=== PATIENT | female | born 1960 | race Caucasian/White ===

== ENCOUNTER → 2017-02-01 | Outpatient (REF) | payer BC ==
[~2017-02-01] MED LIST: AUGM875T27 PO; BISAC5TA PO; IBUP200C PO; METF500T PO; TYLE325T5 PO; ZANT150T PO; [UNRECOGNIZED DRUG - CODE] EX
[2017-02-01 16:32] LABS: ALBUMIN 3.5 GM/DL (3.2-5.2); ALBUMIN/GLOBULIN RATIO 1.13 (1.00-1.93); ALKALINE PHOSPHATASE 59 U/L (45-117); ALT/SGPT 17 U/L (12-78); ANION GAP 11 MEQ/L (8-16); AST/SGOT 14 U/L (15-37); BILIRUBIN,TOTAL 0.5 MG/DL (0.2-1.0); BLOOD UREA NITROGEN 20 MG/DL (7-18); CARBON DIOXIDE LEVEL 29 MEQ/L (21-32); CHLORIDE LEVEL 100 MEQ/L (98-107); CHOLESTEROL LEVEL 156 MG/DL (<200); CREATININE FOR GFR 0.65 MG/DL (0.55-1.02); GLOMERULAR FILTRATION RATE > 60.0 (>51); GLUCOSE, FASTING 143 MG/DL (70-105); POTASSIUM SERUM 3.9 MEQ/L (3.5-5.1); SODIUM LEVEL 140 MEQ/L (136-145); TOTAL PROTEIN 6.6 GM/DL (6.4-8.2); TRIGLYCERIDES LEVEL 142 MG/DL (<150)
== END ==
LOC: M SFHCSACK 10:29
PROVIDERS: ATTEND Physician Assistant
DX: I10 Essential (primary) hypertension (principal); E11.69 Type 2 diabetes mellitus with other specified complication; E03.9 Hypothyroidism, unspecified

== ENCOUNTER → 2017-05-13 | Outpatient (REF) | payer BC ==
[2017-05-13 16:17] LABS: ALBUMIN 3.4 GM/DL (3.2-5.2); ALBUMIN/GLOBULIN RATIO 1.03 (1.00-1.93); ALKALINE PHOSPHATASE 62 U/L (45-117); ALT/SGPT 20 U/L (12-78); ANION GAP 7 MEQ/L (8-16); AST/SGOT 13 U/L (15-37); BILIRUBIN,TOTAL 0.4 MG/DL (0.2-1.0); BLOOD UREA NITROGEN 14 MG/DL (7-18); CALCIUM LEVEL 9.2 MG/DL (8.5-10.1); CARBON DIOXIDE LEVEL 32 MEQ/L (21-32); CHLORIDE LEVEL 100 MEQ/L (98-107); CHOLESTEROL LEVEL 172 MG/DL (<200); CREATININE FOR GFR 0.66 MG/DL (0.55-1.02); GLOMERULAR FILTRATION RATE > 60.0 (>51); GLUCOSE, FASTING 129 MG/DL (70-105); POTASSIUM SERUM 4.1 MEQ/L (3.5-5.1); SODIUM LEVEL 139 MEQ/L (136-145); TOTAL PROTEIN 6.7 GM/DL (6.4-8.2); TRIGLYCERIDES LEVEL 136 MG/DL (<150)
== END ==
LOC: M SFHCSACK 08:11
PROVIDERS: ATTEND Physician Assistant
DX: I10 Essential (primary) hypertension (principal); E11.69 Type 2 diabetes mellitus with other specified complication; E03.9 Hypothyroidism, unspecified

== ENCOUNTER → 2017-07-03 | Outpatient (CLI) | payer BC ==
[~2017-07-03] MED LIST changes: +ASPI1TAB PO; +ATOR1TAB19 PO; +CITA20TA4 PO; +FARX1TAB3 PO; +FERR325T3 PO; +GLIM2TAB PO; +IBUP1TAB7 PO; +JANU100T PO; +LORA10TA2 PO; +LOSA100T5 PO; +METF500T13 PO; +METO25TA4 PO; +OMEP20CA3 PO; +PREG100CA PO; +TIZA4CAP3 PO
--- NOTE | 2017-07-03 16:57 | REP ---
LEFT FEMUR, AP AND LATERAL: AP and lateral view of the left femur are performed. There is no acute fracture or dislocation. There is mild joint space narrowing at the hip and the knee. No intrinsic osseous pathology is seen. IMPRESSION: Mild degenerative changes without other significant abnormalities. Signed by Clinton Washington MD 07/03/2017 05:16 P
--- NOTE | 2017-07-03 16:58 | REP ---
RIGHT FOREARM, TWO VIEWS: There is no evidence of an acute fracture, dislocation or intrinsic bone disease. IMPRESSION: No fracture or dislocation. Signed by Clinton Washington MD 07/03/2017 05:16 P
== END ==
LOC: M RAD 16:21
PROVIDERS: ATTEND Physician Assistant
DX: M79.631 Pain in right forearm (principal); M79.652 Pain in left thigh

== ENCOUNTER → 2017-08-16 | Outpatient (REF) | payer BC ==
[2017-08-16 16:59] LABS: ALBUMIN 3.4 GM/DL (3.2-5.2); ALBUMIN/GLOBULIN RATIO 1.13 (1.00-1.93); ALKALINE PHOSPHATASE 64 U/L (45-117); ALT/SGPT 26 U/L (12-78); ANION GAP 9 MEQ/L (8-16); AST/SGOT 22 U/L (15-37); BILIRUBIN,TOTAL 0.5 MG/DL (0.2-1.0); BLOOD UREA NITROGEN 19 MG/DL (7-18); CARBON DIOXIDE LEVEL 31 MEQ/L (21-32); CHLORIDE LEVEL 99 MEQ/L (98-107); CREATININE FOR GFR 0.67 MG/DL (0.55-1.02); GLOMERULAR FILTRATION RATE > 60.0 (>51); GLUCOSE, FASTING 141 MG/DL (70-105); POTASSIUM SERUM 3.9 MEQ/L (3.5-5.1); SODIUM LEVEL 139 MEQ/L (136-145); TOTAL PROTEIN 6.4 GM/DL (6.4-8.2)
[2017-08-16 17:13] LABS: BASO % 0.3 % (0.0-1.0); EOS # 0.3 10^3/uL (0.0-0.50); EOS % 3.9 % (0.0-3.0); IMMATURE GRANULOCYTE % 0.1 % (0-0); LYMPH % 26.8 % (24.0-44.0); MEAN CORPUSCULAR HEMOGLOBIN 27.8 pg (27.0-33.0); MEAN CORPUSCULAR HGB CONC 31.2 g/dl (32.0-36.5); MONO # 0.4 10^3/uL (0.0-0.8); MONO % 5.8 % (0.0-5.0); NEUTROPHILS # 4.7 10^3/uL (1.8-7.7); NEUTROPHILS % 63.1 % (36.0-66.0); PLATELET COUNT, AUTOMATED 147 10^3/uL (150-450); RED CELL DISTRIBUTION WIDTH 14.9 % (11.5-14.5); WHITE BLOOD COUNT 7.4 10^3/uL (4.0-10.0)
[2017-08-16 17:18] LABS: ADD MORPHOLOGY? NO
== END ==
LOC: M SFHCSACK 07:52
PROVIDERS: ATTEND Physician Assistant
DX: I10 Essential (primary) hypertension (principal); E11.9 Type 2 diabetes mellitus without complications

== ENCOUNTER → 2017-11-22 | Outpatient (REF) | payer BC ==
[2017-11-22 15:27] LABS: BASO % 0.2 % (0.0-1.0); EOS # 0.3 10^3/uL (0.0-0.50); EOS % 3.7 % (0.0-3.0); HEMATOCRIT 42.3 % (36.0-47.0); HEMOGLOBIN 13.5 g/dl (12.0-16.0); IMMATURE GRANULOCYTE % 0.2 % (0-0); LYMPH # 1.7 10^3/uL (1.5-4.5); LYMPH % 20.4 % (24.0-44.0); MEAN CORPUSCULAR HEMOGLOBIN 28.6 pg (27.0-33.0); MEAN CORPUSCULAR HGB CONC 31.9 g/dl (32.0-36.5); MEAN CORPUSCULAR VOLUME 89.6 fl (80.0-96.0); MONO # 0.4 10^3/uL (0.0-0.8); NEUTROPHILS # 5.8 10^3/uL (1.8-7.7); NEUTROPHILS % 70.5 % (36.0-66.0); PLATELET COUNT, AUTOMATED 160 10^3/uL (150-450); RED BLOOD COUNT 4.72 10^6/uL (4.00-5.40); RED CELL DISTRIBUTION WIDTH 14.9 % (11.5-14.5); WHITE BLOOD COUNT 8.3 10^3/uL (4.0-10.0)
[2017-11-22 15:47] LABS: ESTIMATED AVERAGE GLUCOSE 160 MG/DL (60-110); HEMOGLOBIN A1c 7.2 %
[2017-11-22 15:48] LABS: ALBUMIN 3.7 GM/DL (3.2-5.2); ALBUMIN/GLOBULIN RATIO 1.16 (1.00-1.93); ALKALINE PHOSPHATASE 69 U/L (45-117); ALT/SGPT 18 U/L (12-78); ANION GAP 7 MEQ/L (8-16); AST/SGOT 13 U/L (7-37); BILIRUBIN,TOTAL 0.5 MG/DL (0.2-1.0); BLOOD UREA NITROGEN 24 MG/DL (7-18); CARBON DIOXIDE LEVEL 33 MEQ/L (21-32); CHLORIDE LEVEL 100 MEQ/L (98-107); CHOLESTEROL LEVEL 181 MG/DL (<200); CHOLESTEROL RISK RATIO 4.763 (<5); CREATININE FOR GFR 0.71 MG/DL (0.55-1.02); FERRITIN 57 NG/ML (8-252); FREE T4 1.22 NG/DL (0.76-1.46); GLOMERULAR FILTRATION RATE > 60.0 (>51); GLUCOSE, FASTING 138 MG/DL (70-105); HDL CHOLESTEROL 38 MG/DL (>40); IRON (FE) 61 UG/DL (50-170); LDL CHOLESTEROL 107.4 MG/DL (<100); NON-HDL-C 143 MG/DL; PERCENT SATURATION 19.6 % (13.2-45.0); POTASSIUM SERUM 3.8 MEQ/L (3.5-5.1); SODIUM LEVEL 140 MEQ/L (136-145); TOTAL IRON BINDING CAPACITY 311 UG/DL (250-450); TOTAL PROTEIN 6.9 GM/DL (6.4-8.2); TRIGLYCERIDES LEVEL 178 MG/DL (<150)
[2017-11-22 16:07] LABS: TOTAL 25(OH) VITAMIN D 14.8 NG/ML (30.0-100.0)
[2017-11-22 16:20] LABS: CREATININE, URINE 72.5 MG/DL; MALB URINE SIEMENS 25.9 MG/L; MAU/CREAT RATIO 35.7 MCG/MG (0.0-30.0)
== END ==
LOC: M SFHCSACK 13:03
DX: D50.9 Iron deficiency anemia, unspecified (principal); E11.69 Type 2 diabetes mellitus with other specified complication; E03.9 Hypothyroidism, unspecified; E11.9 Type 2 diabetes mellitus without complications; R80.9 Proteinuria, unspecified; E55.9 Vitamin D deficiency, unspecified
CPT/HCPCS: 83550

== ENCOUNTER → 2018-03-07 | Outpatient (REF) | payer BC ==
[2018-03-07 14:57] LABS: BASO % 0.2 % (0.0-1.0); EOS # 0.3 10^3/uL (0.0-0.50); EOS % 3.2 % (0.0-3.0); HEMATOCRIT 40.1 % (36.0-47.0); HEMOGLOBIN 12.5 g/dl (12.0-15.5); IMMATURE GRANULOCYTE % 0.1 % (0-3.0); LYMPH # 2.5 10^3/uL (1.5-4.5); LYMPH % 30.1 % (24.0-44.0); MEAN CORPUSCULAR HGB CONC 31.2 g/dl (32.0-36.5); MEAN CORPUSCULAR VOLUME 89.9 fl (80.0-96.0); MONO # 0.4 10^3/uL (0.0-0.8); MONO % 5.2 % (0.0-5.0); NEUTROPHILS % 61.2 % (36.0-66.0); PLATELET COUNT, AUTOMATED 189 10^3/uL (150-450); RED BLOOD COUNT 4.46 10^6/uL (4.00-5.40); RED CELL DISTRIBUTION WIDTH 14.6 % (11.5-14.5); WHITE BLOOD COUNT 8.1 10^3/uL (4.0-10.0)
[2018-03-07 15:25] LABS: TOTAL 25(OH) VITAMIN D 41.6 NG/ML (30.0-100.0)
[2018-03-07 15:30] LABS: ALBUMIN 3.6 GM/DL (3.2-5.2); ALBUMIN/GLOBULIN RATIO 1.09 (1.00-1.93); ALKALINE PHOSPHATASE 71 U/L (45-117); ALT/SGPT 17 U/L (12-78); ANION GAP 5 MEQ/L (8-16); AST/SGOT 7 U/L (7-37); BILIRUBIN,TOTAL 0.4 MG/DL (0.2-1.0); BLOOD UREA NITROGEN 23 MG/DL (7-18); CALCIUM LEVEL 8.9 MG/DL (8.5-10.1); CARBON DIOXIDE LEVEL 32 MEQ/L (21-32); CHLORIDE LEVEL 103 MEQ/L (98-107); CHOLESTEROL LEVEL 169 MG/DL (<200); CHOLESTEROL RISK RATIO 5.121 (<5); CREATININE FOR GFR 0.77 MG/DL (0.55-1.30); GLOMERULAR FILTRATION RATE > 60.0 (>51); GLUCOSE, FASTING 125 MG/DL (70-100); HDL CHOLESTEROL 33 MG/DL (>40); LDL CHOLESTEROL 100.4 MG/DL (<100); NON-HDL-C 136 MG/DL; POTASSIUM SERUM 4.1 MEQ/L (3.5-5.1); SODIUM LEVEL 140 MEQ/L (136-145); TOTAL PROTEIN 6.9 GM/DL (6.4-8.2); TRIGLYCERIDES LEVEL 178 MG/DL (<150)
== END ==
LOC: M SFHCSACK 08:51
DX: D50.9 Iron deficiency anemia, unspecified (principal); E11.69 Type 2 diabetes mellitus with other specified complication; E55.9 Vitamin D deficiency, unspecified
CPT/HCPCS: 82306

== ENCOUNTER → 2018-03-14 | Outpatient (REF) | payer BC | LOC: M SFHCSACK 09:24 | DX: N39.0 Urinary tract infection, site not specified (principal) ==

== ENCOUNTER → 2018-06-08 | Outpatient (REF) | payer BC ==
[2018-06-08 17:52] LABS: BASO % 0.3 % (0.0-1.0); EOS # 0.3 10^3/uL (0.0-0.50); EOS % 3.7 % (0.0-3.0); HEMATOCRIT 42.7 % (36.0-47.0); HEMOGLOBIN 13.5 g/dl (12.0-15.5); IMMATURE GRANULOCYTE % 0.4 % (0-3.0); LYMPH # 1.9 10^3/uL (1.5-4.5); LYMPH % 25.1 % (24.0-44.0); MEAN CORPUSCULAR HEMOGLOBIN 27.8 pg (27.0-33.0); MEAN CORPUSCULAR HGB CONC 31.6 g/dl (32.0-36.5); MONO # 0.4 10^3/uL (0.0-0.8); MONO % 5.2 % (0.0-5.0); NEUTROPHILS # 5.1 10^3/uL (1.8-7.7); NEUTROPHILS % 65.3 % (36.0-66.0); PLATELET COUNT, AUTOMATED 182 10^3/uL (150-450); RED BLOOD COUNT 4.85 10^6/uL (4.00-5.40); RED CELL DISTRIBUTION WIDTH 14.7 % (11.5-14.5); WHITE BLOOD COUNT 7.7 10^3/uL (4.0-10.0)
[2018-06-08 18:28] LABS: ALBUMIN 3.5 GM/DL (3.2-5.2); ALBUMIN/GLOBULIN RATIO 1.06 (1.00-1.93); ALKALINE PHOSPHATASE 66 U/L (45-117); ALT/SGPT 22 U/L (12-78); ANION GAP 8 MEQ/L (8-16); AST/SGOT 14 U/L (7-37); BILIRUBIN,TOTAL 0.4 MG/DL (0.2-1.0); BLOOD UREA NITROGEN 26 MG/DL (7-18); CALCIUM LEVEL 9.4 MG/DL (8.5-10.1); CARBON DIOXIDE LEVEL 30 MEQ/L (21-32); CHLORIDE LEVEL 104 MEQ/L (98-107); CREATININE FOR GFR 0.77 MG/DL (0.55-1.30); ESTIMATED AVERAGE GLUCOSE 186 MG/DL (60-110); FERRITIN 52 NG/ML (8-252); FREE T4 1.06 NG/DL (0.76-1.46); GLOMERULAR FILTRATION RATE > 60.0 (>51); GLUCOSE, FASTING 187 MG/DL (70-100); HEMOGLOBIN A1c 8.1 %; IRON (FE) 63 UG/DL (50-170); PERCENT SATURATION 19.7 % (13.2-45.0); POTASSIUM SERUM 4.3 MEQ/L (3.5-5.1); SODIUM LEVEL 142 MEQ/L (136-145); TOTAL IRON BINDING CAPACITY 320 UG/DL (250-450); TOTAL PROTEIN 6.8 GM/DL (6.4-8.2)
[2018-06-09 09:51] LABS: TOTAL 25(OH) VITAMIN D 60.4 NG/ML (30.0-100.0)
== END ==
LOC: M SFHCSACK 09:39
DX: D50.9 Iron deficiency anemia, unspecified (principal); E11.69 Type 2 diabetes mellitus with other specified complication; E03.9 Hypothyroidism, unspecified; E55.9 Vitamin D deficiency, unspecified
CPT/HCPCS: 83550

== ENCOUNTER → 2018-09-14 | Outpatient (REF) | payer BC ==
[2018-09-14 18:16] LABS: BASO % 0.2 % (0.0-1.0); EOS # 0.3 10^3/uL (0.0-0.50); EOS % 3.9 % (0.0-3.0); HEMATOCRIT 44.1 % (36.0-47.0); HEMOGLOBIN 13.8 g/dl (12.0-15.5); IMMATURE GRANULOCYTE % 0.4 % (0-3.0); LYMPH # 2.3 10^3/uL (1.5-4.5); LYMPH % 26.4 % (24.0-44.0); MEAN CORPUSCULAR HEMOGLOBIN 28.8 pg (27.0-33.0); MEAN CORPUSCULAR HGB CONC 31.3 g/dl (32.0-36.5); MEAN CORPUSCULAR VOLUME 91.9 fl (80.0-96.0); MONO # 0.5 10^3/uL (0.0-0.8); MONO % 5.3 % (0.0-5.0); NEUTROPHILS # 5.4 10^3/uL (1.8-7.7); NEUTROPHILS % 63.8 % (36.0-66.0); PLATELET COUNT, AUTOMATED 177 10^3/uL (150-450); RED CELL DISTRIBUTION WIDTH 14.8 % (11.5-14.5); WHITE BLOOD COUNT 8.5 10^3/uL (4.0-10.0)
[2018-09-14 18:17] LABS: ALBUMIN 3.7 GM/DL (3.2-5.2); ALBUMIN/GLOBULIN RATIO 1.19 (1.00-1.93); ALKALINE PHOSPHATASE 66 U/L (45-117); ALT/SGPT 27 U/L (12-78); ANION GAP 9 MEQ/L (8-16); AST/SGOT 23 U/L (7-37); BILIRUBIN,TOTAL 0.5 MG/DL (0.2-1.0); BLOOD UREA NITROGEN 23 MG/DL (7-18); CALCIUM LEVEL 9.4 MG/DL (8.5-10.1); CARBON DIOXIDE LEVEL 31 MEQ/L (21-32); CHLORIDE LEVEL 100 MEQ/L (98-107); CHOLESTEROL LEVEL 178 MG/DL (<200); CHOLESTEROL RISK RATIO 5.741 (<5); ESTIMATED AVERAGE GLUCOSE 174 MG/DL (60-110); FREE T4 1.11 NG/DL (0.76-1.46); GLOMERULAR FILTRATION RATE > 60.0 (>51); GLUCOSE, FASTING 169 MG/DL (70-100); HDL CHOLESTEROL 31 MG/DL (>40); HEMOGLOBIN A1c 7.7 %; LDL CHOLESTEROL 107 MG/DL (<100); NON-HDL-C 147 MG/DL; POTASSIUM SERUM 4.6 MEQ/L (3.5-5.1); SODIUM LEVEL 140 MEQ/L (136-145); TOTAL PROTEIN 6.8 GM/DL (6.4-8.2); TRIGLYCERIDES LEVEL 202 MG/DL (<150)
[2018-09-15 09:50] LABS: TOTAL 25(OH) VITAMIN D 54.9 NG/ML (30.0-100.0)
== END ==
LOC: M SFHCADAM 12:27
DX: I10 Essential (primary) hypertension (principal); E11.9 Type 2 diabetes mellitus without complications; E03.9 Hypothyroidism, unspecified; E78.2 Mixed hyperlipidemia; E55.9 Vitamin D deficiency, unspecified
CPT/HCPCS: 84443

== ENCOUNTER → 2019-03-11 | Outpatient (REF) | payer OTHER ==
[~2019-03-11] MED LIST changes: -ASPI1TAB PO; +ASPI81TA26 PO; -CITA20TA4 PO; +CITA20TA6 PO; +LORA-243 PO; -LORA10TA2 PO; +TIZA4CAP PO; -TIZA4CAP3 PO
[2019-03-11 14:45] LABS: BASO % 0.4 % (0.0-1.0); EOS # 0.3 10^3/uL (0.0-0.50); EOS % 3.4 % (0.0-3.0); HEMATOCRIT 40.1 % (36.0-47.0); HEMOGLOBIN 12.6 g/dl (12.0-15.5); LYMPH # 1.9 10^3/uL (1.5-4.5); LYMPH % 24.4 % (24.0-44.0); MEAN CORPUSCULAR HGB CONC 31.4 g/dl (32.0-36.5); MEAN CORPUSCULAR VOLUME 92.4 fl (80.0-96.0); MONO # 0.4 10^3/uL (0.0-0.8); MONO % 5.1 % (0.0-5.0); NEUTROPHILS # 5.2 10^3/uL (1.8-7.7); NEUTROPHILS % 66.1 % (36.0-66.0); PLATELET COUNT, AUTOMATED 249 10^3/uL (150-450); RED BLOOD COUNT 4.34 10^6/uL (4.00-5.40); WHITE BLOOD COUNT 7.9 10^3/uL (4.0-10.0)
[2019-03-11 15:00] LABS: ALBUMIN 3.7 GM/DL (3.2-5.2); ALT/SGPT 17 U/L (12-78); BILIRUBIN,TOTAL 0.3 MG/DL (0.2-1.0); BLOOD UREA NITROGEN 30 MG/DL (7-18); CALCIUM LEVEL 9.2 MG/DL (8.5-10.1); CARBON DIOXIDE LEVEL 30 MEQ/L (21-32); CHLORIDE LEVEL 106 MEQ/L (98-107); CHOLESTEROL LEVEL 188 MG/DL (<200); CHOLESTEROL RISK RATIO 5.696 (<5); CREATININE FOR GFR 0.89 MG/DL (0.55-1.30); FREE T4 1.19 NG/DL (0.76-1.46); GLOMERULAR FILTRATION RATE > 60.0 (>51); GLUCOSE, FASTING 135 MG/DL (70-100); HDL CHOLESTEROL 33 MG/DL (>40); LDL CHOLESTEROL 116 MG/DL (<100); NON-HDL-C 155 MG/DL; POTASSIUM SERUM 4.8 MEQ/L (3.5-5.1); SODIUM LEVEL 140 MEQ/L (136-145); TOTAL PROTEIN 6.9 GM/DL (6.4-8.2); TRIGLYCERIDES LEVEL 196 MG/DL (<150)
[2019-03-11 15:46] LABS: CREATININE, URINE 75.7 MG/DL; MALB URINE SIEMENS 14.3 MG/L; MAU/CREAT RATIO 18.8 MCG/MG (0.0-30.0)
[2019-03-11 16:41] LABS: HEMOGLOBIN A1c 6.9 %
== END ==
LOC: M SFHCSACK 10:10
PROVIDERS: ATTEND Physician Assistant
DX: D50.9 Iron deficiency anemia, unspecified (principal); E78.2 Mixed hyperlipidemia; E03.9 Hypothyroidism, unspecified; E11.9 Type 2 diabetes mellitus without complications

== ENCOUNTER → 2019-06-29 | Outpatient (REF) | payer OTHER, SELFPAY ==
[~2019-06-29] MED LIST changes: -OMEP20CA3 PO; +OMEP20CA4 PO
[2019-06-29 14:11] LABS: BASO % 0.4 % (0.0-1.0); EOS # 0.3 10^3/uL (0.0-0.50); EOS % 3.7 % (0.0-3.0); HEMOGLOBIN 12.8 g/dl (12.0-15.5); LYMPH # 1.7 10^3/uL (1.5-4.5); LYMPH % 23.7 % (24.0-44.0); MEAN CORPUSCULAR HEMOGLOBIN 29.7 pg (27.0-33.0); MEAN CORPUSCULAR VOLUME 92.8 fl (80.0-96.0); MONO # 0.4 10^3/uL (0.0-0.8); MONO % 4.9 % (0.0-5.0); NEUTROPHILS # 4.8 10^3/uL (1.8-7.7); NEUTROPHILS % 66.9 % (36.0-66.0); PLATELET COUNT, AUTOMATED 183 10^3/uL (150-450); RED BLOOD COUNT 4.31 10^6/uL (4.00-5.40); WHITE BLOOD COUNT 7.1 10^3/uL (4.0-10.0)
[2019-06-29 14:24] LABS: ALBUMIN 3.7 GM/DL (3.2-5.2); ALT/SGPT 18 U/L (12-78); BILIRUBIN,TOTAL 0.4 MG/DL (0.2-1.0); BLOOD UREA NITROGEN 21 MG/DL (7-18); CALCIUM LEVEL 9.3 MG/DL (8.5-10.1); CARBON DIOXIDE LEVEL 32 MEQ/L (21-32); CHLORIDE LEVEL 100 MEQ/L (98-107); CHOLESTEROL LEVEL 170 MG/DL (<200); CHOLESTEROL RISK RATIO 5.151 (<5); CREATININE FOR GFR 0.83 MG/DL (0.55-1.30); FERRITIN 98 NG/ML (8-252); FREE T4 1.14 NG/DL (0.76-1.46); GLOMERULAR FILTRATION RATE > 60.0 (>51); GLUCOSE, FASTING 198 MG/DL (70-100); HDL CHOLESTEROL 33 MG/DL (>40); IRON (FE) 71 UG/DL (50-170); LDL CHOLESTEROL 88 MG/DL (<100); NON-HDL-C 137 MG/DL; PERCENT SATURATION 22.5 % (13.2-45.0); POTASSIUM SERUM 4.6 MEQ/L (3.5-5.1); SODIUM LEVEL 138 MEQ/L (136-145); TOTAL IRON BINDING CAPACITY 315 UG/DL (250-450); TOTAL PROTEIN 6.6 GM/DL (6.4-8.2); TRIGLYCERIDES LEVEL 244 MG/DL (<150)
[2019-06-29 14:25] LABS: TOTAL 25(OH) VITAMIN D 49.4 NG/ML (30.0-100.0)
[2019-06-29 16:05] LABS: HEMOGLOBIN A1c 8.8 %
== END ==
LOC: M SFHCSACK 09:31
PROVIDERS: ATTEND Physician Assistant
DX: D50.9 Iron deficiency anemia, unspecified (principal); E11.69 Type 2 diabetes mellitus with other specified complication; E03.9 Hypothyroidism, unspecified; E11.9 Type 2 diabetes mellitus without complications; E55.9 Vitamin D deficiency, unspecified

== ENCOUNTER → 2019-12-21 | Outpatient (REF) | payer BC ==
[~2019-12-21] MED LIST changes: -GLIM2TAB PO; +GLIM2TAB4 PO; +OMEP1CAP73 PO; -OMEP20CA4 PO
[2019-12-21 14:16] LABS: BASO % 0.3 % (0.0-1.0); EOS # 0.2 10^3/uL (0.0-0.5); EOS % 3.3 % (0.0-3.0); HEMATOCRIT 40.4 % (36.0-47.0); HEMOGLOBIN 12.3 g/dl (12.0-15.5); LYMPH # 1.8 10^3/uL (1.5-5.0); LYMPH % 25.5 % (24.0-44.0); MEAN CORPUSCULAR HEMOGLOBIN 28.7 pg (27.0-33.0); MEAN CORPUSCULAR HGB CONC 30.4 g/dl (32.0-36.5); MEAN CORPUSCULAR VOLUME 94.2 fl (80.0-96.0); MONO # 0.4 10^3/uL (0.0-0.8); MONO % 5.6 % (0.0-5.0); NEUTROPHILS # 4.5 10^3/uL (1.5-8.5); NEUTROPHILS % 64.7 % (36.0-66.0); PLATELET COUNT, AUTOMATED 181 10^3/uL (150-450); RED BLOOD COUNT 4.29 10^6/uL (4.00-5.40); WHITE BLOOD COUNT 6.9 10^3/uL (4.0-10.0)
[2019-12-21 14:40] LABS: ALBUMIN 3.6 GM/DL (3.2-5.2); BILIRUBIN,TOTAL 0.7 MG/DL (0.2-1.0); CALCIUM LEVEL 9.9 MG/DL (8.5-10.1); CREATININE FOR GFR 1.14 MG/DL (0.55-1.30); FREE T4 1.18 NG/DL (0.76-1.46); GLOMERULAR FILTRATION RATE 52.1 (>51); HEMOGLOBIN A1c 9.3 %; POTASSIUM SERUM 4.2 MEQ/L (3.5-5.1); THYROID STIMULATING HORMONE 3.39 uIU/ML (0.358-3.740); TOTAL 25(OH) VITAMIN D 51.8 NG/ML (30.0-100.0); TOTAL PROTEIN 6.8 GM/DL (6.4-8.2)
== END ==
LOC: M SFHCSACK 09:19
PROVIDERS: ATTEND Physician Assistant
DX: D50.9 Iron deficiency anemia, unspecified (principal); E11.9 Type 2 diabetes mellitus without complications; E03.9 Hypothyroidism, unspecified; E55.9 Vitamin D deficiency, unspecified

== ENCOUNTER → 2020-02-04 | Outpatient (REF) | payer BC ==
[2020-02-04 14:35] LABS: CREATININE, URINE 93.9 MG/DL; MALB URINE SIEMENS 40.1 MG/L; MAU/CREAT RATIO 42.7 MCG/MG (0.0-30.0)
== END ==
LOC: M LAB REF 13:28
PROVIDERS: ATTEND Nurse Practitioner Family
DX: E11.65 Type 2 diabetes mellitus with hyperglycemia (principal)

== ENCOUNTER → 2020-08-01 | Outpatient (REF) | payer BC ==
[~2020-08-01] MED LIST changes: +AZIT-12 PO; +HYDR25TAB PO; +LEVO75TA4 PO; +LISI10TA4 PO; +LOSA100T50 PO; +NEUR100C PO; +TRUL0.5I SC
[2020-08-01 12:56] LABS: ALBUMIN 3.8 GM/DL (3.2-5.2); BILIRUBIN,TOTAL 0.4 MG/DL (0.2-1.0); CALCIUM LEVEL 9.6 MG/DL (8.5-10.1); CHOLESTEROL RISK RATIO 4.923 (<5); CREATININE FOR GFR 1.1 MG/DL (0.55-1.30); GLOMERULAR FILTRATION RATE 54.1 (>51); POTASSIUM SERUM 4.8 MEQ/L (3.5-5.1); TOTAL PROTEIN 6.8 GM/DL (6.4-8.2)
== END ==
LOC: M LABDRWAD 12:14
PROVIDERS: ATTEND Nurse Practitioner Family
DX: E78.2 Mixed hyperlipidemia (principal)

== ENCOUNTER 2020-08-17 13:00 | Emergency (ER) | payer BC ==
[~2020-08-17] VITALS: Ht 162.6 cm; Wt 169.1 kg
[~2020-08-17 13:00] MED LIST changes: -AZIT-12 PO; -HYDR25TAB PO; -LEVO75TA4 PO; -LISI10TA4 PO; -LOSA100T50 PO; -NEUR100C PO; -TRUL0.5I SC
[2020-08-17] MEDS ORDERED: TRUL0.5I SC (13:51)
[2020-08-17] MEDS ORDERED: LEVO75TA4 PO (13:51)
[2020-08-17] MEDS ORDERED: LOSA100T50 PO (13:51)
[2020-08-17] MEDS ORDERED: HYDR25TAB PO (13:51)
[2020-08-17] MEDS ORDERED: NEUR100C PO (13:51)
[2020-08-17] MEDS ORDERED: LISI10TA4 PO (13:51)
[2020-08-17 14:20] LABS: BASO % 0.2 % (0.0-1.0); EOS # 0.2 10^3/uL (0.0-0.5); EOS % 2.6 % (0.0-3.0); HEMATOCRIT 38.7 % (36.0-47.0); LYMPH # 1.8 10^3/uL (1.5-5.0); MEAN CORPUSCULAR HEMOGLOBIN 28.8 pg (27.0-33.0); MEAN CORPUSCULAR VOLUME 92.8 fl (80.0-96.0); MONO # 0.4 10^3/uL (0.0-0.8); MONO % 4.7 % (0.0-5.0); NEUTROPHILS # 5.8 10^3/uL (1.5-8.5); PLATELET COUNT, AUTOMATED 198 10^3/uL (150-450); RED BLOOD COUNT 4.17 10^6/uL (4.00-5.40); WHITE BLOOD COUNT 8.3 10^3/uL (4.0-10.0)
[2020-08-17] MEDS ORDERED: NS 1,000 ML IV ONE (14:45)
[2020-08-17] MEDS ORDERED: ONDANSETRON 4MG/2ML VIAL IV ONE (15:00)
--- NOTE | 2020-08-17 15:04 | REPVR ---
PROCEDURE INFORMATION: Exam: CT Head Without Contrast Exam date and time: 08/17/2020 2:53 PM Age: 60 years old Clinical indication: Pain; Headache; Migraine; Aura effect not specified; Additional info: Abrupt severe SOSA TECHNIQUE: Imaging protocol: Computed tomography of the head without contrast. Radiation optimization: All CT scans at this facility use at least one of these dose optimization techniques: automated exposure control; mA and/or kV adjustment per patient size (includes targeted exams where dose is matched to clinical indication); or iterative reconstruction. COMPARISON: No relevant prior studies available. FINDINGS: Brain: There is no acute intracranial hemorrhage, cerebral edema, or midline shift. Mild cerebral and cerebellar volume loss is present. Cerebral ventricles: No ventriculomegaly. Bones/joints: No acute fracture. Paranasal sinuses: Visualized sinuses are unremarkable. No fluid levels. Mastoid air cells: Visualized mastoid air cells are well aerated. Orbits: The included orbital structures are unremarkable. Soft tissues: Unremarkable. IMPRESSION: No acute intracranial abnormality. Electronically signed by: Jim Rice On 08/17/2020 15:03:24 PM
[2020-08-17] MEDS ORDERED: dexameTHASONE 4 MG/ML 1ML VIAL (J1100 PER 1MG) IV ONE (16:15)
[2020-08-17] MEDS ORDERED: MORPHINE 2 MG/ML 1ML VIAL (J2270) IV ONE (16:15)
[2020-08-17] MEDS ORDERED: ACETAMINOPHEN 500 MG TAB PO ONE (16:15)
[2020-08-17] MEDS ORDERED: SUMAtriptan SUCCINATE 6 MG/0.5 ML VIAL SC ONE (16:15)
[2020-08-17] MEDS ORDERED: AZIT-12 PO (17:06)
[2020-08-17 17:18] VITALS: BP 125/96
== END 2020-08-17 17:23 | disposition home or self-care (01) ==
LOC: M ED 13:00
DX: R51 Headache (principal); H66.92 Otitis media, unspecified, left ear; R42 Dizziness and giddiness; H53.9 Unspecified visual disturbance; I10 Essential (primary) hypertension; E11.9 Type 2 diabetes mellitus without complications
CPT/HCPCS: 70450; 80047; 85025; 96361; 96372; 96374; 96375; 99284; J1100; J2270; J2405

== ENCOUNTER → 2020-10-03 | Outpatient (CLI) | payer BC ==
[~2020-10-03] MED LIST changes: +AZIT-12 PO; +HYDR25TAB PO; +LEVO75TA4 PO; +LISI10TA4 PO; +LOSA100T50 PO; +NEUR100C PO; +TRUL0.5I SC
== END ==
LOC: M LABSMTC 10:16
PROVIDERS: ATTEND Family Medicine
DX: Z20.828 Contact with and (suspected) exposure to other viral communicable diseases (principal)

== ENCOUNTER → 2021-03-06 | Outpatient (REF) | payer BC ==
[~2021-03-06] MED LIST changes: +HYDR-3490 PO; -HYDR25TAB PO; +LISI10TA22 PO; -LISI10TA4 PO
[2021-03-06 19:45] LABS: MALB URINE SIEMENS 91.3 MG/L; MAU/CREAT RATIO 74.2 MCG/MG (0.0-30.0)
== END ==
LOC: M LAB REF 17:12
PROVIDERS: ATTEND Nurse Practitioner Family
DX: E11.65 Type 2 diabetes mellitus with hyperglycemia (principal)

== ENCOUNTER → 2021-03-30 | Outpatient (CLI) | payer BC ==
--- NOTE | 2021-03-30 14:10 | REP ---
INDICATION: PAIN IN SHOULDERS COMPARISON: None. TECHNIQUE: Internal rotation, external rotation, and Y view right and left shoulder. FINDINGS: Right shoulder: Cortical irregularity and inferior spurring at the acromioclavicular joint is appreciated. Acute versus chronic fracture along the distal/lateral aspect of the acromion cannot be excluded and should be correlated clinically. Associated decreased subacromial space is noted. The glenohumeral joint is relatively intact and age-appropriate. Left shoulder: Cortical irregularity and spurring at the acromioclavicular joint and distal/lateral aspect of the acromion noted. Subtle irregularity along the inferior half of the glenoid rim identified. The humeral head demonstrates very subtle irregularity at the greater tuberosity. Small calcifications in the subacromial space suggest tendinopathy. No acute fracture or dislocation. IMPRESSION: Arthritic degenerative changes noted bilaterally (left greater than right) Possible likely old injury involving the right acromion. <Electronically signed by Betito Fields > 03/30/21 [id number]
== END ==
LOC: M ADAMS 11:04
PROVIDERS: ATTEND Family Medicine
DX: M25.511 Pain in right shoulder (principal); M25.512 Pain in left shoulder

== ENCOUNTER → 2021-04-03 | Outpatient (REF) | payer BC ==
[2021-04-03 12:36] LABS: BASO % 0.3 % (0.0-1.0); EOS # 0.3 10^3/uL (0.0-0.5); EOS % 3.2 % (0.0-3.0); HEMATOCRIT 39.6 % (36.0-47.0); HEMOGLOBIN 12.2 g/dl (12.0-15.5); LYMPH # 1.8 10^3/uL (1.5-5.0); LYMPH % 20.9 % (24.0-44.0); MEAN CORPUSCULAR HEMOGLOBIN 28.4 pg (27.0-33.0); MEAN CORPUSCULAR HGB CONC 30.8 g/dl (32.0-36.5); MEAN CORPUSCULAR VOLUME 92.3 fl (80.0-96.0); MONO # 0.4 10^3/uL (0.0-0.8); MONO % 4.3 % (2.0-8.0); NEUTROPHILS # 6.2 10^3/uL (1.5-8.5); NEUTROPHILS % 70.8 % (36.0-66.0); PLATELET COUNT, AUTOMATED 177 10^3/uL (150-450); RED BLOOD COUNT 4.29 10^6/uL (4.00-5.40); WHITE BLOOD COUNT 8.8 10^3/uL (4.0-10.0)
[2021-04-03 13:15] LABS: CREATININE, URINE 75.9 MG/DL; MAU/CREAT RATIO 227.9 MCG/MG (0.0-30.0)
[2021-04-03 13:19] LABS: ALBUMIN 3.6 GM/DL (3.2-5.2); BILIRUBIN,TOTAL 0.4 MG/DL (0.2-1.0); CALCIUM LEVEL 9.8 MG/DL (8.8-10.2); CHOLESTEROL RISK RATIO 4.475 (<5); CREATININE FOR GFR 1.12 MG/DL (0.55-1.30); FREE T4 1.01 NG/DL (0.76-1.46); GLOMERULAR FILTRATION RATE 52.8 (>45); PERCENT SATURATION 14.6 % (13.2-45.0); POTASSIUM SERUM 4.2 MEQ/L (3.5-5.1); THYROID STIMULATING HORMONE 1.52 uIU/ML (0.358-3.740); TOTAL PROTEIN 6.7 GM/DL (6.4-8.2)
[2021-04-03 13:44] LABS: HEMOGLOBIN A1c 6.7 %
== END ==
LOC: M SFHCADAM 10:48
PROVIDERS: ATTEND Family Medicine
DX: D50.9 Iron deficiency anemia, unspecified (principal); E78.2 Mixed hyperlipidemia; E03.9 Hypothyroidism, unspecified; E11.9 Type 2 diabetes mellitus without complications

== ENCOUNTER → 2021-06-21 | Outpatient (REF) | payer BC | LOC: M SFHCADAM 17:09 | PROVIDERS: ATTEND Physician Assistant | DX: N30.01 Acute cystitis with hematuria (principal) ==

== ENCOUNTER 2021-06-28 08:16 | Inpatient (IN) | payer BC ==
[~2021-06-28] VITALS: Ht 160 cm; Wt 163.5 kg
[2021-06-28 09:34] LABS: BASO % 0.1 % (0.0-1.0); EOS # 0.5 10^3/uL (0.0-0.5); EOS % 2.2 % (0.0-3.0); HEMATOCRIT 33.8 % (36.0-47.0); HEMOGLOBIN 10.5 g/dl (12.0-15.5); LYMPH # 0.9 10^3/uL (1.5-5.0); LYMPH % 4.1 % (24.0-44.0); MEAN CORPUSCULAR HEMOGLOBIN 27.9 pg (27.0-33.0); MEAN CORPUSCULAR HGB CONC 31.1 g/dl (32.0-36.5); MEAN CORPUSCULAR VOLUME 89.7 fl (80.0-96.0); MONO # 0.6 10^3/uL (0.0-0.8); MONO % 2.7 % (2.0-8.0); NEUTROPHILS # 19.8 10^3/uL (1.5-8.5); NEUTROPHILS % 90.1 % (36.0-66.0); PLATELET COUNT, AUTOMATED 173 10^3/uL (150-450); RED BLOOD COUNT 3.77 10^6/uL (4.00-5.40)
--- NOTE | 2021-06-28 09:53 | REP ---
INDICATION: CHEST PAIN. COMPARISON: PA and lateral chest dated 12/20/2014. TECHNIQUE: Portable AP chest with the patient semi upright. FINDINGS: There is diffuse bilateral interstitial coarsening as an interval change. There are no pleural effusions or focal infiltrates. Cardiac size is upper normal, unchanged. The kelvin, mediastinum, and skeletal structures are unremarkable. IMPRESSION: Diffuse bilateral interstitial coarsening as an interval change. Cardiac size is upper normal, unchanged. There are no pleural effusions. <Electronically signed by Clinton Talavera > 06/28/21 [id number]
[2021-06-28 10:08] LABS: RSV AMPLIFICATION NEGATIVE (NEGATIVE)
[2021-06-28] MEDS ORDERED: LevoFLOXacin IV 750 MG in IV 1 EA IV ONE (10:15)
[2021-06-28] MEDS ORDERED: NS IV ONE (10:15)
[2021-06-28 10:18] LABS: ALBUMIN 3.3 GM/DL (3.2-5.2); ALT/SGPT 14 U/L (12-78); BILIRUBIN,DIRECT < 0.1 MG/DL (0.0-0.2); BILIRUBIN,TOTAL 0.5 MG/DL (0.2-1.0); BLOOD UREA NITROGEN 34 MG/DL (7-18); CALCIUM LEVEL 9.5 MG/DL (8.8-10.2); CARBON DIOXIDE LEVEL 24 MEQ/L (21-32); CHLORIDE LEVEL 105 MEQ/L (98-107); CREATININE FOR GFR 1.72 MG/DL (0.55-1.30); GLOMERULAR FILTRATION RATE 32.2 (>45); GLUCOSE, FASTING 202 MG/DL (70-100); LIPASE 102 U/L (73-393); NT-PRO BNP 290 PG/ML (<125); POTASSIUM SERUM 4.5 MEQ/L (3.5-5.1); SODIUM LEVEL 138 MEQ/L (136-145); TOTAL PROTEIN 6.8 GM/DL (6.4-8.2)
[2021-06-28] MEDS ORDERED: ISOVUE-370 76% 100ML VIAL As Ordered ONE (11:13)
--- NOTE | 2021-06-28 11:37 | REP ---
INDICATION: hypoxia. COMPARISON: None. TECHNIQUE: Scans were obtained during contrast administration. FINDINGS: There is no evidence of pulmonary embolus. The pulmonary arteries come ascending and descending thoracic aorta and great vessels are unremarkable. Areas of subsegmental atelectasis at the left lung base. Lungs otherwise clear. There is mild pulmonary venous congestion. The heart is slightly enlarged. IMPRESSION: No evidence of pulmonary embolus. Cardiomegaly and mild pulmonary venous congestion. <Electronically signed by Avila Dorsey > 06/28/21 [id number]
[2021-06-28] MEDS ORDERED: ATOR40TA75 PO (12:44)
[2021-06-28] MEDS ORDERED: POLYOPD OU (12:44)
[2021-06-28] MEDS ORDERED: IBUP1TAB7 PO (12:44)
[2021-06-28] MEDS ORDERED: TIZA4CAP PO (12:44)
[2021-06-28] MEDS ORDERED: DULA3PEN SQ (12:44)
[2021-06-28] MEDS ORDERED: MACR100C43 PO (12:44)
[2021-06-28] MEDS ORDERED: METF-838 PO (12:44)
[2021-06-28] MEDS ORDERED: FLAX1CAP2 PO (12:44)
[2021-06-28] MEDS ORDERED: METO1TAB7 PO (12:44)
[2021-06-28] MEDS ORDERED: ERGO500029 PO (12:44)
[2021-06-28] MEDS ORDERED: HOME MED LIST COMPLETE! XX SCH (12:45)
[2021-06-28] MEDS ORDERED: ONDANSETRON 4MG/2ML VIAL IV PRN (12:50)
[2021-06-28] MEDS ORDERED: POLYVINYL ALCOHOL OPHTH SOLN 15 ML(LIQUITEARS) OU PRN (12:50)
[2021-06-28] MEDS ORDERED: GLUCOSE 4GM CHEW TABLET PO PRN (12:50)
[2021-06-28] MEDS ORDERED: GLUCAGON INJ 1MG VIAL SC PRN (12:50)
[2021-06-28] MEDS ORDERED: tiZANidine 4 MG TAB PO PRN (12:50)
[2021-06-28] MEDS ORDERED: DEXTROSE 50% 50 ML SYRINGE IV PRN (12:50)
[2021-06-28 14:00] VITALS: BP 137/68
--- NOTE | 2021-06-28 14:29 | REP ---
INDICATION: HEIDI with ongoing pyelo. COMPARISON: None. TECHNIQUE: Real-time sonographic evaluation of the kidneys FINDINGS: Multiple ultrasonographic images of the right kidney show the right kidney to measure 13 x 5.6 x 5.6 cm. The renal cortical echotexture is unremarkable. There are no masses. There is good corticomedullary differentiation. There is no hydronephrosis. There are no perinephric fluid collections. Multiple ultrasonographic images of the left kidney show the left kidney to measure 11.9 x 5.1 x 6.6 cm. The renal cortical echotexture is unremarkable. There are no masses. There is good corticomedullary differentiation. There is no hydronephrosis. There are no perinephric fluid collections. IMPRESSION: Unremarkable renal ultrasonography. <Electronically signed by Chris Logan > 06/28/21 [id number]
--- NOTE | 2021-06-28 16:02 | HPEPDOC ---
[facility] Medical History & Physical Date of Admission Jun 28, 2021 Date of Service: Jun 28, 2021 Attending Physician: KISHA WALL MD History and Physical CHIEF COMPLAINT: cough, SOB, R flank pain HISTORY OF PRESENT ILLNESS: 61 yo W with a history of DM, morbid obesity, DM, HTN, HLD, osteoarthritis, GERD, hypothyroidism who was recently seen in outpatient clinic on 06/21 with dysuria and R flank pain and diagnosed with acute cystitis and prescribed empiric nitrofurantoin therapy and discharged home after collection of UA and UCx, with resultant Cx that finally grew Enterbacter that is resistant to keflex and intermediate response/ resistance to nitrofurantoin, who now presents to the ED with persistent R flank pain, SOB and what she initially described to be chest pressure after she developed a dry cough yesterday. In the ED, she was hemodynamically stable with mild hypoxemia to 89% on room air and was placed 2L NC with good effect. Workup was notable for leukocytosis to 22, hgb 10.5m platelets 173, na 138, K 4.5, BUn 34, Cr 1.72, LFTs and lipase wnl, EKG without ST segment changes and NSR, troponin 0.00, proBNP 290, lactic acid 2.6, while urine was turbid with TNTC WBCs and RBCs in UA tiwth 3+ leukocyte esterase and 2+ bacteria and blood and urine cultures are pending. She was given levofloxacin in the ED and IVF. For her SOB and mild hypoxemia she had a CXR that hsowe interstitial coarsening and a CTA chest that showed venous congestion without evidence of pulmonary embolism, focal opacities or pleural effusions. Covid-19 and influenza A and B were negative. I sent a full respiratory panel. She is now being admitted to medicine for pyelonephritis and workup of her dyspnea with c/f CHF vs. viral URI. PAST MEDICAL HISTORY: DM, morbid obesity, DM, HTN, HLD, osteoarthritis, GERD, hypothyroidism, chronic LE muscle spasms, uterine fibroids PAST SURGICAL HISTORY: C section x 2 Endometrial ablation SOCIAL HISTORY: Tobacco use: remote, quit >10y ago. however has lots of 2nd hand smoke within the household. ETOH: None Illicit drug use: None FAMILY HISTORY: Father: , had HTN, DM, GI cancer Mother: , had DM1 and CAD Grandmother - had cancer grandfather - from an [place] ALLERGIES: Please see below. REVIEW OF SYSTEMS: 10 point ROS was otherwise negative except as noted in the HPI above. PHYSICAL EXAMINATION: VITAL SIGNS: see below GENERAL APPEARANCE: morbidly obese, NAD, on 2L NC HEENT: NCAT, EOMI, MMM CARDIOVASCULAR: RRR, no m/r/g LUNGS: Bibasilar crackles in posterior lung meyer, otherwise clear without wheezing ABDOMEN: Obese, suprapubic fullness and discomfort with palpation, R flank pain, otherwise no guarding or rebound tenderness EXTREMITIES: No LE edema, WWP NEUROLOGICAL: CN 3-12 intact, otherwise nonfocal examination PSYCHIATRIC: AOx3 LABORATORY DATA and IMAGING: summarized in HPI, see below for full details MICROBIOLOGY: Please see below. ASSESSMENT: 61 yo W with a history of DM, morbid obesity, DM, HTN, HLD, osteoarthritis, GERD, hypothyroidism who was recently seen in outpatient clinic on 06/21 with dysuria and R flank pain and diagnosed with acute cystitis and prescribed empiric nitrofurantoin therapy and discharged home after collection of UA and UCx, with resultant Cx that finally grew Enterbacter that is resistant to keflex and intermediate response/ resistance to nitrofurantoin, who now presents to the ED with persistent R flank pain, SOB and what she initially described to be chest pressure after she developed a dry cough yesterday. In the ED, she was hemodynamically stable with mild hypoxemia to 89% on room air and was placed 2L NC with good effect. Workup was notable for leukocytosis to 22, hgb 10.5m platelets 173, na 138, K 4.5, BUn 34, Cr 1.72, LFTs and lipase wnl, EKG without ST segment changes and NSR, troponin 0.00, proBNP 290, lactic acid 2.6, while urine was turbid with TNTC WBCs and RBCs in UA tiwth 3+ leukocyte esterase and 2+ bacteria and blood and urine cultures are pending. She was given levofloxacin in the ED and IVF. For her SOB and mild hypoxemia she had a CXR that hsowe interstitial coarsening and a CTA chest that showed venous congestion without evidence of pulmonary embolism, focal opacities or pleural effusions. Covid-19 and influenza A and B were negative. I sent a full respiratory panel. She is now being admitted to medicine for pyelonephritis and workup of her dyspnea with c/f CHF vs. viral URI. PLAN: Pyelonephritis: likely 2/2 Anterobacter aerogenes w/ resistance to keflex and intermediate to nitrofurantoin and has been on nitrofurantoin since 06/22 with persisting R flank pain, leukocytosis and floridly positive UA. -s/p levaquin in the ED, will switch to ciprofloxacin IV -f/u UCx -s/p 30cc/kg sepsis IVF bolus with NS in the ED -discontinue nitrofurantoin Dyspnea with mild hypoxemia: -f/u full respiratory panel -negative for covid-19 and influenza A and B -droplet precaution -CTA with soome vascular congestion but no PE of evidence of opacities or effusions -slight proBNP elevation, EKG non ischemic, troponin negative -remote telemetry -TTE -no diuretics at this time while borderline septoid DM: -hold injectables and PO antihyperglycemics -SSI AC/HS -FSBG AC/HS -hypoglycemic protocol GERD: -continue home omeprazole HEIID: -Renal US -Hold home HCTZ and losartan -discontinue nitrofurantoin -discontinue ibuprofen -s/p fluids Hypothyroidism: -continue home levothyroxine Iron deficiency anemia -continue home iron sulfate Peripheral neuropathy: -continue home gabapentin HLD: -atorvastatin 40mg QD DVT ppx: heparin BID Vital Signs Vital Signs Date Time Temp Pulse Resp B/P (MAP) Pulse Ox O2 Delivery O2 Flow Rate FiO2 06/28/21 11:45 84 91 Room Air 06/28/21 11:30 129/59 (82) 06/28/21 10:31 20 06/28/21 10:16 2.0 06/28/21 08:22 97.5 Laboratory Data Labs 24H Laboratory Tests 2 06/28/21 09:21: Immature Granulocyte % (Auto) 0.8, Neutrophils (%) (Auto) 90.1H, Lymphocytes (%) (Auto) 4.1L, Monocytes (%) (Auto) 2.7, Eosinophils (%) (Auto) 2.2, Basophils (%) (Auto) 0.1, Neutrophils # (Auto) 19.8H, Lymphocytes # (Auto) 0.9L, Monocytes # (Auto) 0.6, Eosinophils # (Auto) 0.5, Basophils # (Auto) 0.0, Nucleated Red Blood Cells % (auto) 0.0, Anion Gap 9, Glomerular Filtration Rate 32.2L, Lactic Acid Level 2.6*H, Calcium Level 9.5, Total Bilirubin 0.5, Direct Bilirubin < 0.1, Aspartate Amino Transf (AST/SGOT) 13, Alanine Aminotransferase (ALT/SGPT) 14, Alkaline Phosphatase 88, RL-Tzj-[id number]-Type Natriuretic Peptide 290H, Total Protein 6.8, Albumin 3.3, Albumin/Globulin Ratio 0.9L, Lipase 102, Thyroid Stimulating Hormone (TSH) 1.090, Coronavirus (COVID-19)(PCR) NEGATIVE, Influenza Type A (RT-PCR) NEGATIVE, Influenza Type B (RT-PCR) NEGATIVE, Respiratory Syncytial Virus (PCR) NEGATIVE 06/28/21 09:25: POC Troponin I (Misc) 0.00 06/28/21 10:45: Urine Color SHARON, Urine Appearance CLOUDYH, Urine pH 5.0, Urine Specific [place] 1.026, Urine Protein 2+H, Urine Glucose (UA) 1+H, Urine Ketones NEGATIVE, Urine Blood 3+H, Urine Nitrite NEGATIVE, Urine Bilirubin 2+H, Urine Urobilinogen 0.2, Urine Leukocyte Esterase 3+H, Urine WBC (Auto) TNTCH, Urine RBC (Auto) TNTCH, Urine Hyaline Casts (Auto) 0, Urine Bacteria (Auto) 2+H, Urine Squamous Epithelial Cells 12, Urine Mucus (Auto) SMALL, Urine Yeast-Like Cells (Auto) SMALLH, Urine Sperm (Auto) 06/28/21 13:36: Lactic Acid Followup at 4 Hours 1.6 CBC/BMP Laboratory Tests 06/28/21 09:21 Microbiology Microbiology 06/28/21 Urine Culture, Received Pending 06/28/21 Blood Culture, Received Pending 06/28/21 Blood Culture, Received Pending Home Medications Scheduled Aspirin (Aspirin EC) 81 Mg Tab, 81 MG PO DAILY Atorvastatin Calcium (Atorvastatin Calcium) 40 Mg Tablet, 40 MG PO DAILY Citalopram Hydrobromide (Citalopram HBr) 20 Mg Tab, 20 MG PO DAILY Dapagliflozin Propanediol (Farxiga) 10 Mg Tab, 10 MG PO DAILY Dulaglutide (Trulicity) 3 Mg/0.5 Ml Pen.injctr, 3 MG SQ QWEEK THURSDAYS Ergocalciferol (Vitamin D2) (Vitamin D2) 50,000 Units Cap, 50,000 UNITS PO QWEEK SATURDAY Ferrous Sulfate (Ferrous Sulfate) 325 Mg Tab, 325 MG PO DAILY Flaxseed Oil/[place] 3,6,9 (Sv Flaxseed Oil 1,300 mg Sftgl) 1 Each Capsule, 2 CAP PO QPM Gabapentin (Neurontin) 100 Mg Capsule, 100 MG PO BID Glimepiride (Glimepiride) 2 Mg Tab, 2 MG PO DAILY Hydrochlorothiazide (Hydrochlorothiazide) 25 Mg Tablet, 25 MG PO DAILY Ibuprofen (Ibuprofen) 800 Mg Tab, 800 MG PO BID Levothyroxine Sodium (Levothyroxine Sodium) 75 Mcg Tablet, 75 MCG PO DAILY Loratadine (Loratadine) 10 Mg Tab, 10 MG PO DAILY Losartan Potassium (Losartan Potassium) 100 Mg Tablet, 100 MG PO DAILY Metformin HCl (Metformin HCl ER) 500 Mg Tab.er.24h, 1,500 MG PO QPM Metoprolol Succinate (Metoprolol Succinate) 50 Mg Tab.er.24h, 50 MG PO DAILY Nitrofurantoin Monohyd/M-Cryst (Macrobid 100 mg Capsule) 100 Mg Capsule, 100 MG PO BID STARTED 06/21/21 FOR 10 DAYS Omeprazole (Omeprazole) 20 Mg Cap, 20 MG PO QPM Tizanidine HCl (Tizanidine HCl) 4 Mg Cap, 4 MG PO QHS Scheduled PRN Ibuprofen (Ibuprofen) 800 Mg Tablet, 800 MG PO DAILY PRN for MILD PAIN (PS 1-4) Polyvinyl Alcohol (Artificial Tears) 15 Ml Drops, 1 DROP OU QID PRN for DRY EYES Tizanidine HCl (Tizanidine HCl) 4 Mg Capsule, 4 MG PO BID PRN for SPASMS Allergies Coded Allergies: amoxicillin (Verified Allergy, Unknown, 08/17/20) clavulanic acid (Verified Allergy, Unknown, 08/17/20) metformin (Verified Allergy, Unknown, 08/17/20) A-FIB/CHADSVASC A-FIB History Current/History of A-Fib/PAF?: No Current PO Anticoag Therapy: No Age/Risk Factor Scoring CHADSVASC: CHADSVASC Response (Comments) Value Age Risk Factor Age < 65 years old 0 Gender Risk Factor Female 1 Hx of CHF No 0 Hx of HTN Yes 1 Hx of Stroke/TIA/or VTE No 0 Hx of Diabetes Yes 1 Hx of Vascular Disease No 0 Total 3 Treatment Treatment ordered: NONE Reason Anticoagulant not given: Not indicated/[id number] KISHA WALL MD Jun 28, 2021 16:02
[2021-06-28] MEDS: HumaLOG INSULIN (NovoLOG) PER UNIT SC SCH ×2 (17:36→21:00)
[2021-06-28] MEDS ORDERED: tiZANidine 4 MG TAB PO SCH (21:00)
[2021-06-28] MEDS: OMEPRAZOLE 20 MG CAP PO SCH (21:20)
[2021-06-28] MEDS: GABAPENTIN 100 MG CAP PO SCH (21:20)
[2021-06-28] MEDS: ACETAMINOPHEN TAB 650MG DOSE (2X325MG) PO PRN (21:21)
[2021-06-28] MEDS: HEPARIN SOD (PORCINE) 5000UNITS/ML 1ML VIAL/SYRINGE SC SCH (21:21)
[2021-06-28 22:00] VITALS: BP 112/58
[2021-06-29] MEDS: LEVOTHYROXINE 75MCG TABLET (0.075MG) PO SCH (05:42)
[2021-06-29 06:00] VITALS: BP 134/70
[2021-06-29 06:02] LABS: HEMATOCRIT 33.2 % (36.0-47.0); HEMOGLOBIN 10.1 g/dl (12.0-15.5); MEAN CORPUSCULAR HEMOGLOBIN 27.7 pg (27.0-33.0); MEAN CORPUSCULAR HGB CONC 30.4 g/dl (32.0-36.5); PLATELET COUNT, AUTOMATED 164 10^3/uL (150-450); RED BLOOD COUNT 3.65 10^6/uL (4.00-5.40); WHITE BLOOD COUNT 14.1 10^3/uL (4.0-10.0)
[2021-06-29 06:26] LABS: CALCIUM LEVEL 9.1 MG/DL (8.8-10.2); CREATININE FOR GFR 1.49 MG/DL (0.55-1.30); MAGNESIUM LEVEL 1.7 MG/DL (1.8-2.4); POTASSIUM SERUM 4.1 MEQ/L (3.5-5.1)
--- NOTE | 2021-06-29 06:26 | ECGEPIP ---
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
[2021-06-29] MEDS: HEPARIN SOD (PORCINE) 5000UNITS/ML 1ML VIAL/SYRINGE SC SCH ×2 (08:31→21:04)
[2021-06-29] MEDS: ASPIRIN 81MG ENTERIC TABLET PO SCH (08:32)
[2021-06-29] MEDS: GABAPENTIN 100 MG CAP PO SCH ×2 (08:32→21:04)
[2021-06-29] MEDS: CitaloPRAM (CeleXA) 20 MG TAB PO SCH (08:32)
[2021-06-29] MEDS: HumaLOG INSULIN (NovoLOG) PER UNIT SC SCH ×4 (08:32→21:00)
[2021-06-29] MEDS: METOPROLOL SUCC (TopROL XL) 50MG **XL** TAB PO SCH (08:36)
[2021-06-29] MEDS: LORATADINE 10 MG TAB PO SCH (08:37)
[2021-06-29] MEDS: FERROUS SULFATE 325MG TAB PO SCH (08:37)
[2021-06-29] MEDS: ATORVASTATIN 20 MG TAB PO SCH (08:37)
[2021-06-29] MEDS: ACETAMINOPHEN TAB 650MG DOSE (2X325MG) PO PRN (08:42)
[2021-06-29] MEDS ORDERED: CIPROFLOXACIN 400 MG in IV 1 EA IV SCH (09:00)
[2021-06-29] MEDS ORDERED: MAG SULF 1GM/100ML (MAG RUN) 1 GM in IV 1 EA IV ONE (12:40)
[2021-06-29] MEDS ORDERED: FUROSEMIDE 40MG/4ML VIAL (J1940) IV ONE (12:40)
--- NOTE | 2021-06-29 12:47 | IPNPDOC ---
Text Note Date of Service The patient was seen on 06/29/21. NOTE SUBJECTIVE: -Borderline hypoxemic to 85% on room air. When I asked her about smoking, she reported that she quit many years ago but lives with a spouse who smokes a lot and smokes within the house and so has significant second hand smoke. -She otherwise denies chest pain/pressure, SOB, N/V/D this AM OBJECTIVE: PHYSICAL EXAMINATION: VITAL SIGNS: see below GENERAL APPEARANCE: morbidly obese, NAD, on 2L NC HEENT: NCAT, EOMI, MMM CARDIOVASCULAR: RRR, no m/r/g LUNGS: Bibasilar crackles in posterior lung meyer, otherwise clear without wheezing ABDOMEN: Obese, suprapubic fullness and discomfort with palpation, R flank pain, otherwise no guarding or rebound tenderness EXTREMITIES: No LE edema, WWP NEUROLOGICAL: CN 3-12 intact, otherwise nonfocal examination PSYCHIATRIC: AOx3 LABORATORY DATA: Reviewed Cr 1.49 MICROBIOLOGY: Please see below. ASSESSMENT: 61 yo W with a history of DM, morbid obesity, DM, HTN, HLD, osteoarthritis, GERD, hypothyroidism who was recently seen in outpatient clinic on 06/21 with dysuria and R flank pain and diagnosed with acute cystitis and prescribed empiric nitrofurantoin therapy and discharged home after collection of UA and UCx, with resultant Cx that finally grew Enterbacter that is resistant to keflex and intermediate response/ resistance to nitrofurantoin now admitted for pyelonephritis and workup of her dyspnea with c/f CHF. PLAN: Pyelonephritis: likely 2/2 Anterobacter aerogenes w/ resistance to keflex and intermediate to nitrofurantoin and has been on nitrofurantoin since 06/22 with persisting R flank pain, leukocytosis and floridly positive UA. -s/p levaquin in the ED, now on ciprofloxacin, switch to PO -f/u UCx -s/p IVF -discontinued nitrofurantoin Dyspnea with mild hypoxemia: -full respiratory panel negative -negative for covid-19 and influenza A and B -CTA with vascular congestion but no PE of evidence of opacities or effusions -slight proBNP elevation, EKG non ischemic, troponin negative -remote telemetry wnl -will give lasix 40 IV once DM: -hold injectables and PO antihyperglycemics -SSI AC/HS -FSBG AC/HS -hypoglycemic protocol GERD: -continue home omeprazole HEIDI: improving -Renal US wnl -Hold home HCTZ and losartan -discontinue nitrofurantoin -discontinue ibuprofen -s/p fluids Hypothyroidism: -continue home levothyroxine Iron deficiency anemia -continue home iron sulfate Peripheral neuropathy: -continue home gabapentin HLD: -atorvastatin 40mg QD DVT ppx: heparin BID VS,Fishbone, I+O VS, Fishbone, I+O Laboratory Tests 06/29/21 05:47 06/29/21 05:48 Vital Signs Date Time Temp Pulse Resp B/P (MAP) Pulse Ox O2 Delivery O2 Flow Rate FiO2 06/29/21 09:00 2.0 06/29/21 08:36 93 112/64 06/29/21 06:00 98.3 17 95 Nasal Cannula I&O- Last 24 Hours up to 6 AM 06/29/21 06:00 Intake Total 1750 ml Output Total 300 ml Balance 1450 ml KISHA WALL MD Jun 29, 2021 12:47
[2021-06-29 14:00] VITALS: BP 112/69
[2021-06-29] MEDS: CIPROFLOXACIN 500MG TABLET PO SCH (17:14)
[2021-06-29] MEDS: OMEPRAZOLE 20 MG CAP PO SCH (21:04)
[2021-06-30] MEDS: LEVOTHYROXINE 75MCG TABLET (0.075MG) PO SCH (06:00)
[2021-06-30] MEDS: CIPROFLOXACIN 500MG TABLET PO SCH (06:01)
[2021-06-30 06:27] LABS: HEMATOCRIT 31.1 % (36.0-47.0); HEMOGLOBIN 9.6 g/dl (12.0-15.5); MEAN CORPUSCULAR HEMOGLOBIN 27.7 pg (27.0-33.0); MEAN CORPUSCULAR HGB CONC 30.9 g/dl (32.0-36.5); MEAN CORPUSCULAR VOLUME 89.6 fl (80.0-96.0); PLATELET COUNT, AUTOMATED 168 10^3/uL (150-450); RED BLOOD COUNT 3.47 10^6/uL (4.00-5.40); WHITE BLOOD COUNT 8.9 10^3/uL (4.0-10.0)
[2021-06-30 06:54] LABS: CALCIUM LEVEL 8.8 MG/DL (8.8-10.2); CREATININE FOR GFR 1.53 MG/DL (0.55-1.30); GLOMERULAR FILTRATION RATE 36.9 (>45); POTASSIUM SERUM 4.2 MEQ/L (3.5-5.1)
[2021-06-30] MEDS: FERROUS SULFATE 325MG TAB PO SCH (08:41)
[2021-06-30] MEDS: CitaloPRAM (CeleXA) 20 MG TAB PO SCH (08:41)
[2021-06-30] MEDS: GABAPENTIN 100 MG CAP PO SCH (08:41)
[2021-06-30] MEDS: HumaLOG INSULIN (NovoLOG) PER UNIT SC SCH (08:41)
[2021-06-30 08:42] VITALS: BP 126/74
[2021-06-30] MEDS: METOPROLOL SUCC (TopROL XL) 50MG **XL** TAB PO SCH (08:42)
[2021-06-30] MEDS: ATORVASTATIN 20 MG TAB PO SCH (08:42)
[2021-06-30] MEDS: ASPIRIN 81MG ENTERIC TABLET PO SCH (08:42)
[2021-06-30] MEDS: HEPARIN SOD (PORCINE) 5000UNITS/ML 1ML VIAL/SYRINGE SC SCH (08:42)
[2021-06-30] MEDS: LORATADINE 10 MG TAB PO SCH (08:42)
[2021-06-30] MEDS ORDERED: CIPR-249 PO (09:00)
[2021-06-30] MEDS ORDERED: ACET1TAB55 PO (09:00)
--- NOTE | 2021-06-30 09:18 | DS.PDOC ---
Discharge Summary General Date of Admission Jun 28, 2021 at 12:50 Date of Discharge 06/30/2021 Attending Physician: KISHA WALL MD Discharge Summary PROCEDURES PERFORMED DURING STAY: None ADMITTING DIAGNOSES: Pyelonephritis HEIDI DISCHARGE DIAGNOSES: Pyelonephritis HEIDI DM Mild transient hypoxemia Morbid obesity HTN HLD Osteoarthritis GERD Hypothyroidism COMPLICATIONS/CHIEF COMPLAINT: Chf,Uti. HISTORY OF PRESENT ILLNESS: 61 yo W with a history of DM, morbid obesity, DM, HTN, HLD, osteoarthritis, GERD, hypothyroidism who was recently seen in outpatient clinic on 06/21 with dysuria and R flank pain and diagnosed with acute cystitis and prescribed empiric nitrofurantoin therapy and discharged home after collection of UA and UCx, with resultant Cx that finally grew Enterbacter that is resistant to keflex and intermediate response/ resistance to nitrofurantoin, who now presented to the ED with persistent R flank pain, SOB and what she initially described to be chest pressure after she developed a dry cough the day prior to presentation. HOSPITAL COURSE: In the ED, she was hemodynamically stable with mild hypoxemia to 89% on room air and was placed 2L NC with good effect. Workup was notable for leukocytosis to 22, hgb 10.5m platelets 173, na 138, K 4.5, BUn 34, Cr 1.72, LFTs and lipase wnl, EKG without ST segment changes and NSR, troponin 0.00, proBNP 290, lactic acid 2.6, while urine was turbid with TNTC WBCs and RBCs in UA with 3+ leukocyte esterase and 2+ bacteria and blood and urine cultures are pending. She was given levofloxacin in the ED and IVF. For her SOB and mild hypoxemia she had a CXR that showed interstitial coarsening and a CTA chest that showed venous congestion without evidence of pulmonary embolism, focal opacities or pleural ef fusions. Covid-19 and influenza A and B were negative. I sent a full respiratory panel that was also negative. She was admitted to medicine for pyelonephritis, HEIDI and dyspnea with c/f CHF. UCx from admission also grew enterobacter aerogenes with the same sensitivities as 06/21 culture. She did well on cipro and was transitioned to pills with resolution of leukocytosis, improvement in R flank pain. With regard to her HEIDI, she is on HCTZ, high amounts of NSAIDs for OA, metformin, ARB at home. These were all held while inpatient with improvement. At this time, I am taking her off the HCTZ and NSAIDs and she is to follow up with her PCP shortly to discuss other alternative therapies for her OA. BP is well controlled and so I will continue her on the BB and ARB for now without HCTZ. With regard to the SOB she did have mild hypoxemia, mildly elevated proBNP, stable EKG, no telemetry noted arrhythmias and responded well to one dose of lasix. She will require a CHF workup and CAD workup in the outpatient setting per PCP if this persists. DISCHARGE MEDICATIONS: Please see below. ALLERGIES: Please see below. PHYSICAL EXAMINATION ON DISCHARGE: VITAL SIGNS: see below GENERAL APPEARANCE: morbidly obese, NAD, on room air HEENT: NCAT, EOMI, MMM CARDIOVASCULAR: RRR, no m/r/g LUNGS: Trace bibasilar crackles in posterior lung meyer, otherwise clear without wheezing ABDOMEN: Obese, suprapubic fullness and discomfort with palpation, R flank pain, otherwise no guarding or rebound tenderness EXTREMITIES: No LE edema, WWP NEUROLOGICAL: CN 3-12 intact, otherwise nonfocal examination PSYCHIATRIC: AOx3 LABORATORY DATA: Please see below. IMAGING: CXR: There is diffuse bilateral interstitial coarsening as an interval change. There are no pleural effusions or focal infiltrates. Cardiac size is upper normal, unchanged. The kelvin, mediastinum, and skeletal structures are unremarkable. IMPRESSION: Diffuse bilateral interstitial coarsening as an interval change. Cardiac size is upper normal, unchanged. There are no pleural effusions. CTA chest: There is no evidence of pulmonary embolus. The pulmonary arteries come ascending and descending thoracic aorta and great vessels are unremarkable. Areas of subsegmental atelectasis at the left lung base. Lungs otherwise clear. There is mild pulmonary venous congestion. The heart is slightly enlarged. IMPRESSION: No evidence of pulmonary embolus. Cardiomegaly and mild pulmonary venous congestion. Renal US: Multiple ultrasonographic images of the right kidney show the right kidney to measure 13 x 5.6 x 5.6 cm. The renal cortical echotexture is unremarkable. There are no masses. There is good corticomedullary differentiation. There is no hydronephrosis. There are no perinephric fluid collections. Multiple ultrasonographic images of the left kidney show the left kidney to measure 11.9 x 5.1 x 6.6 cm. The renal cortical echotexture is unremarkable. There are no masses. There is good corticomedullary differentiation. There is no hydronephrosis. There are no perinephric fluid collections. IMPRESSION: Unremarkable renal ultrasonography. PROGNOSIS: Good ACTIVITY: As tolerated DIET: Consistent carb, 2g sodium DISCHARGE PLAN: Home with 6d of cipro. To stop NSAIDs and take 1g tylenol as needed q6h for OA pain. To stop HCTZ. DISPOSITION: Home DISCHARGE INSTRUCTIONS: Home with 6d of cipro. To stop NSAIDs and take 1g tylenol as needed q6h for OA pain. To stop HCTZ. To see PCP within 7d. ITEMS TO FOLLOWUP ON ON OUTPATIENT: -Resolution of pyelonephritis -Cardiac workup for possible CAD given recent chest pain/pressure, however had stable non ischemic EKG, negative troponin and stable telemetry over 48h. Also had some mild vascular congestion, could warrant CHF workup with at least an echo. -Morbid obesity and weight loss plan and possible surgery if candidacy allows -Alternative osteoarthritis management off NSAID therapy given recent HEIDI with multiple meds that could affect renal function -HTN check, took her off HCTZ. kept her on ARB and BB DISCHARGE CONDITION: Stable TIME SPENT ON DISCHARGE: 46 minutes. Vital Signs/I&Os Vital Signs Date Time Temp Pulse Resp B/P (MAP) Pulse Ox O2 Delivery O2 Flow Rate FiO2 06/30/21 08:42 88 126/74 06/29/21 21:00 1.0 06/29/21 18:00 98.1 18 95 Nasal Cannula I&O- Last 24 Hours up to 6 AM 06/30/21 06:00 Intake Total 2070 ml Output Total 2850 ml Balance -780 ml Laboratory Data Labs 24H Laboratory Tests 2 06/29/21 11:41: Bedside Glucose (Misc Panel) 129H 06/29/21 16:16: Bedside Glucose (Misc Panel) 141H 06/29/21 20:18: Bedside Glucose (Misc Panel) 202H 06/30/21 05:59: Nucleated Red Blood Cells % (auto) 0.0, Anion Gap 4L, Glomerular Filtration Rate 36.9L, Calcium Level 8.8 CBC/BMP Laboratory Tests 06/30/21 05:59 FSBS Laboratory Tests Test 06/29/21 11:41 06/29/21 16:16 06/29/21 20:18 Range/Units Bedside Glucose (Misc Panel) 129 141 202 80-115 MG/DL Microbiology Microbiology 06/28/21 Respiratory Virus Panel (PCR) ([facility]) - Final, Complete 06/28/21 Urine Culture - Final, Complete Enterobacter Aerogenes 06/28/21 Blood Culture - Preliminary, Resulted No growth after 24 hours . All specim... 06/28/21 Blood Culture - Preliminary, Resulted No growth after 24 hours . All specim... Discharge Medications Scheduled Aspirin (Aspirin EC) 81 Mg Tab, 81 MG PO DAILY, (Reported) Atorvastatin Calcium (Atorvastatin Calcium) 40 Mg Tablet, 40 MG PO DAILY, (Reported) Ciprofloxacin HCl (Cipro) 500 Mg Tablet, 500 MG PO BID@ Citalopram Hydrobromide (Citalopram HBr) 20 Mg Tab, 20 MG PO DAILY, (Reported) Dapagliflozin Propanediol (Farxiga) 10 Mg Tab, 10 MG PO DAILY, (Reported) Dulaglutide (Trulicity) 3 Mg/0.5 Ml Pen.injctr, 3 MG SQ QWEEK, (Reported) THURSDAYS Ergocalciferol (Vitamin D2) (Vitamin D2) 50,000 Units Cap, 50,000 UNITS PO QWEEK, (Reported) SATURDAY Ferrous Sulfate (Ferrous Sulfate) 325 Mg Tab, 325 MG PO DAILY, (Reported) Flaxseed Oil/Gatzke 3,6,9 (Sv Flaxseed Oil 1,300 mg Sftgl) 1 Each Capsule, 2 CAP PO QPM, (Reported) Gabapentin (Neurontin) 100 Mg Capsule, 100 MG PO BID, (Reported) Glimepiride (Glimepiride) 2 Mg Tab, 2 MG PO DAILY, (Reported) Levothyroxine Sodium (Levothyroxine Sodium) 75 Mcg Tablet, 75 MCG PO DAILY, (Reported) Loratadine (Loratadine) 10 Mg Tab, 10 MG PO DAILY, (Reported) Losartan Potassium (Losartan Potassium) 100 Mg Tablet, 100 MG PO DAILY, (Reported) Metformin HCl (Metformin HCl ER) 500 Mg Tab.er.24h, 1,500 MG PO QPM, (Reported) Metoprolol Succinate (Metoprolol Succinate) 50 Mg Tab.er.24h, 50 MG PO DAILY, (Reported) Omeprazole (Omeprazole) 20 Mg Cap, 20 MG PO QPM, (Reported) Tizanidine HCl (Tizanidine HCl) 4 Mg Cap, 4 MG PO QHS, (Reported) Scheduled PRN Acetaminophen (Acetaminophen) 325 Mg Tablet, 1,000 MG PO Q6HP PRN for pain Polyvinyl Alcohol (Artificial Tears) 15 Ml Drops, 1 DROP OU QID PRN for DRY EYES, (Reported) Tizanidine HCl (Tizanidine HCl) 4 Mg Capsule, 4 MG PO BID PRN for SPASMS, (Reported) Allergies Coded Allergies: amoxicillin (Verified Allergy, Unknown, 08/17/20) clavulanic acid (Verified Allergy, Unknown, 08/17/20) metformin (Verified Allergy, Unknown, 08/17/20) KISHA WALL MD Jun 30, 2021 09:18
== END 2021-06-30 12:49 | disposition home or self-care (01) | DRG 463 ==
LOC: M ED 08:16 → M ED INP 12:50 → ENRESERV 14:10 → M MSPAV 15:37
PROVIDERS: ADMIT Internal Medicine; ATTEND Internal Medicine
DX: N10 Acute pyelonephritis (principal); N17.9 Acute kidney failure, unspecified; E11.42 Type 2 diabetes mellitus with diabetic polyneuropathy; Z68.44 Body mass index [BMI] 60.0-69.9, adult; E66.01 Morbid (severe) obesity due to excess calories; I10 Essential (primary) hypertension; E78.5 Hyperlipidemia, unspecified; M19.90 Unspecified osteoarthritis, unspecified site; K21.9 Gastro-esophageal reflux disease without esophagitis; E03.9 Hypothyroidism, unspecified; Z20.822 Contact with and (suspected) exposure to COVID-19; R25.2 Cramp and spasm; Z87.891 Personal history of nicotine dependence; R06.00 Dyspnea, unspecified; R09.02 Hypoxemia; D50.9 Iron deficiency anemia, unspecified; Z79.899 Other long term (current) drug therapy; Z79.84 Long term (current) use of oral hypoglycemic drugs

== ENCOUNTER → 2021-07-07 | Outpatient (REF) | payer BC ==
[~2021-07-07] MED LIST changes: +ACET1TAB55 PO; +ATOR40TA75 PO; +CIPR-249 PO; +DULA3PEN SQ; +ERGO500029 PO; +FLAX1CAP2 PO; +MACR100C43 PO; +METF-838 PO; +METO1TAB7 PO; +POLYOPD OU
[2021-07-07 13:49] LABS: APPEARANCE, URINE HAZY (CLEAR); BACTERIA, URINE AUTO NEGATIVE (NEGATIVE); BILIRUBIN, URINE AUTO NEGATIVE (NEGATIVE); BLOOD, URINE BLOOD 1+ (NEGATIVE); COLOR, URINE YELLOW (YELLOW); GLUCOSE, URINE (UA) AUTO 3+ mg/dL (NEGATIVE); KETONE, URINE AUTO NEGATIVE (NEGATIVE); LEUKOCYTE ESTERASE, URINE AUTO NEGATIVE (NEGATIVE); NITRITE, URINE AUTO NEGATIVE (NEGATIVE); PROTEIN, URINE AUTO NEGATIVE (NEGATIVE); RBC, URINE AUTO 0 /HPF (0-3); SPECIFIC GRAVITY URINE AUTO 1.012 (1.002-1.035); SQUAMOUS EPITHELIAL CELL UR AU 7 /HPF (0-6); UROBILINOGEN, URINE AUTO 0.2 mg/dL (0.0-2.0); WBC, URINE AUTO 3 /HPF (0-3)
[2021-07-07 14:34] LABS: ALBUMIN 3.6 GM/DL (3.2-5.2); BILIRUBIN,TOTAL 0.2 MG/DL (0.2-1.0); CALCIUM LEVEL 9.5 MG/DL (8.8-10.2); CREATININE FOR GFR 1.29 MG/DL (0.55-1.30); GLOMERULAR FILTRATION RATE 44.9 (>45); POTASSIUM SERUM 4.5 MEQ/L (3.5-5.1); TOTAL PROTEIN 6.9 GM/DL (6.4-8.2)
== END ==
LOC: M SFHCADAM 10:11
PROVIDERS: ATTEND Family Medicine
DX: N17.9 Acute kidney failure, unspecified (principal); N12 Tubulo-interstitial nephritis, not specified as acute or chronic

== ENCOUNTER → 2021-07-27 | Outpatient (CLI) | payer BC ==
--- NOTE | 2021-07-27 12:01 | REP ---
INDICATION: LT LEG EDEMA, R/O DVT COMPARISON: None. TECHNIQUE: Real time compression and duplex Doppler interrogation of the left lower extremity deep venous system is performed, including the right common femoral vein.Compression of the left peroneal and posterior tibial veins is performed. FINDINGS: The left common femoral, superficial femoral and popliteal veins are fully compressible with transducer pressure and demonstrate normal spontaneous and phasic flow, without evidence of deep venous thrombosis.The right common femoral vein demonstrates no thrombus.The visualized left peroneal and posterior tibial veins demonstrate no thrombus, not well seen due to body habitus. IMPRESSION: No evidence of deep venous thrombosis of the left lower extremity femoral popliteal venous system.No thrombus in the visualized left peroneal and posterior tibial veins. <Electronically signed by Clinton Washington > 07/27/21 1371
== END ==
LOC: M RAD 11:30
PROVIDERS: ATTEND Family Medicine
DX: R60.0 Localized edema (principal)

== ENCOUNTER → 2021-08-18 | Outpatient (CLI) | payer BC ==
--- NOTE | 2021-08-19 22:33 | ECHO ---
ECHOCARDIOGRAM DATE OF PROCEDURE: 08/18/2021 Age: 61 Gender: Female Height: 160 cm. Weight: 165 kg. REFERRING PROVIDER: Noemi James PA-C. PATIENT LOCATION: Outpatient. MEASUREMENTS: 2D Measurements: IVS 1.4 cm LVPW 1.3 cm LV 4.5 cm LA 4.5 cm Aortic root 3.6 cm Doppler Measurements: Peak velocity across the aortic valve 1.6 m/sec Peal velocity across the LVOT 0.95 m/sec Peak gradient across the aortic valve 10 mmHg Mitral E 0.5 Mitral A 0.65 with a ratio of 0.8 2D COMMENTS: 1. Normal left ventricular size with mildly increased left ventricular wall thickness. Left ventricular systolic function is normal. Left ventricular systolic ejection fraction estimated at 60-65%. 2. Mildly enlarged left atrium. Normal right atrium and right ventricle. 3. The atrial septum appeared to be normal without evidence of defect or shunt. 4. Normal aortic root. 5. Trace pericardial effusion noted. No evidence of cardiac tamponade. 6. Normal aortic valve. Mildly calcified mitral annulus with normal anterior mitral valve leaflet motion. Normal tricuspid valve. The pulmonic valve and proximal pulmonary artery branches were not well visualized. 7. The inferior vena cava was not visualized. DOPPLER: Only trace mitral regurgitation detected. Abnormal relaxation pattern was noted across the mitral valve leaflets as well as the mitral valve annulus consistent with features of grade 1 left ventricular diastolic dysfunction. IMPRESSION: 1. Normal global left ventricular systolic function with mild concentric left ventricular hypertrophy. There are some features of grade 1 left ventricular diastolic dysfunction manifested by abnormal relaxation. 2. Mitral annulus calcification with a mildly enlarged left atrium and only trace mitral regurgitation. 3. Trace pericardial effusion was noted. 4. This study was technically limited due to poor acoustic window.
== END ==
LOC: M CARPUL 11:30
PROVIDERS: ATTEND Physician Assistant
DX: R60.9 Edema, unspecified (principal)

== ENCOUNTER → 2021-09-07 | Outpatient (REF) | payer BC ==
[2021-09-07 17:46] LABS: BASO % 0.4 % (0.0-1.0); EOS # 0.2 10^3/uL (0.0-0.5); EOS % 2.7 % (0.0-3.0); HEMOGLOBIN 11.7 g/dl (12.0-15.5); LYMPH # 2.4 10^3/uL (1.5-5.0); LYMPH % 30.6 % (24.0-44.0); MEAN CORPUSCULAR HEMOGLOBIN 28.3 pg (27.0-33.0); MEAN CORPUSCULAR HGB CONC 30.8 g/dl (32.0-36.5); MEAN CORPUSCULAR VOLUME 91.8 fl (80.0-96.0); MONO # 0.5 10^3/uL (0.0-0.8); MONO % 5.8 % (2.0-8.0); NEUTROPHILS # 4.7 10^3/uL (1.5-8.5); NEUTROPHILS % 60.1 % (36.0-66.0); PLATELET COUNT, AUTOMATED 186 10^3/uL (150-450); RED BLOOD COUNT 4.14 10^6/uL (4.00-5.40); WHITE BLOOD COUNT 7.7 10^3/uL (4.0-10.0)
[2021-09-07 18:10] LABS: ALBUMIN 3.3 GM/DL (3.2-5.2); BILIRUBIN,TOTAL 0.3 MG/DL (0.2-1.0); CALCIUM LEVEL 9.4 MG/DL (8.8-10.2); CREATININE FOR GFR 1.06 MG/DL (0.55-1.30); GLOMERULAR FILTRATION RATE 56.3 (>45); POTASSIUM SERUM 4.1 MEQ/L (3.5-5.1); TOTAL PROTEIN 6.3 GM/DL (6.4-8.2)
== END ==
LOC: M SFHCADAM 14:55
PROVIDERS: ATTEND Family Medicine
DX: Z01.818 Encounter for other preprocedural examination (principal)

== ENCOUNTER → 2021-09-22 | Outpatient (CLI) | payer BC ==
[~2021-09-22] MED LIST changes: +FURO20TA2 PO
== END ==
LOC: M LABSMTC 11:19
PROVIDERS: ATTEND Anesthesiology
DX: Z01.818 Encounter for other preprocedural examination (principal); Z11.52 Encounter for screening for COVID-19

== ENCOUNTER → 2021-10-19 | Outpatient (CLI) | payer BC ==
[~2021-10-19] MED LIST changes: +TIZA4TAB4 PO
--- NOTE | 2021-10-19 14:45 | REP ---
INDICATION: LT LEG SWELLING, R/O DVT COMPARISON: 07/27/2021. TECHNIQUE: Real time compression and duplex Doppler interrogation of the left lower extremity deep venous system is performed, including the right common femoral vein.Compression of the left peroneal and posterior tibial veins is performed. FINDINGS: The left common femoral, superficial femoral and popliteal veins are fully compressible with transducer pressure and demonstrate normal spontaneous and phasic flow, without evidence of deep venous thrombosis.The right common femoral vein demonstrates no thrombus.The calf veins could not be visualized due to soft tissue edema and body habitus. IMPRESSION: No evidence of deep venous thrombosis of the left lower extremity femoral popliteal venous system. <Electronically signed by Clinton Washington > 10/19/21 [id number]
== END ==
LOC: M RAD 14:08
PROVIDERS: ATTEND Family Medicine
DX: M79.89 Other specified soft tissue disorders (principal)

== ENCOUNTER → 2021-10-20 | Outpatient (CLI) | payer BC | LOC: M LABSMTC 09:37 | PROVIDERS: ATTEND Anesthesiology | DX: Z01.812 Encounter for preprocedural laboratory examination (principal); Z20.822 Contact with and (suspected) exposure to COVID-19 ==

== ENCOUNTER → 2022-05-23 | Outpatient (REF) | payer BC ==
[~2022-05-23] MED LIST changes: +LOSA100T45 PO; -LOSA100T50 PO; +TIZA10TA PO; -TIZA4TAB4 PO
[2022-05-24 18:12] LABS: CREATININE, URINE 98.4 MG/DL; MAU/CREAT RATIO 23.3 MCG/MG (0.0-30.0)
== END ==
LOC: M LAB REF 16:50
PROVIDERS: ATTEND Nurse Practitioner Family
DX: E11.65 Type 2 diabetes mellitus with hyperglycemia (principal)

== ENCOUNTER → 2022-08-03 | Outpatient (CLI) | payer BC ==
[~2022-08-03] MED LIST changes: +FLAX100010 PO; +TIRZ5PEN SQ
== END ==
LOC: M RAD 09:53
PROVIDERS: ATTEND Family Medicine
DX: R60.0 Localized edema (principal)

== ENCOUNTER → 2022-08-14 | Outpatient (CLI) | payer BC | LOC: M LABSMTC 10:59 | PROVIDERS: ATTEND Anesthesiology | DX: Z01.818 Encounter for other preprocedural examination (principal); Z11.52 Encounter for screening for COVID-19 ==

== ENCOUNTER 2022-08-17 09:33 | Day surgery (SDC) | payer BC ==
[~2022-08-17] VITALS: Ht 160 cm; Wt 168.6 kg
[~2022-08-17 09:33] MED LIST changes: +NS 1,000 ML IV ONE
[2022-08-17] MEDS ORDERED: LR 1,000 ML IV SCH (10:05)
[2022-08-17] MEDS ORDERED: LIDOCAINE 2% 100MG/5ML SDV (FOR ANES.) As Ordered ONE (11:07)
[2022-08-17] MEDS ORDERED: propofoL 200 MG/20 ML VIAL As Ordered ONE ×2 (11:07→13:34)
[2022-08-17] MEDS ORDERED: SIMETHICONE 40MG/0.6ML DROPS 30ML As Ordered ONE (12:49)
[2022-08-17] MEDS ORDERED: GLYCOPYRROLATE INJ 0.2 MG/ML 2 ML VIAL As Ordered ONE (12:50)
[2022-08-17] MEDS ORDERED: fentaNYL 100 MCG/2 ML INJECTION As Ordered ONE (13:14)
[2022-08-17] MEDS ORDERED: PHENYLephrine 500MCG 5ML (100MCG/ML) SYRINGE As Ordered ONE (13:48)
[2022-08-17 15:00] VITALS: BP 126/60
== END 2022-08-17 15:54 | disposition home or self-care (01) ==
LOC: M SDC 09:33
PROVIDERS: ATTEND Surgery
DX: Z12.11 Encounter for screening for malignant neoplasm of colon (principal); Z80.0 Family history of malignant neoplasm of digestive organs; D12.5 Benign neoplasm of sigmoid colon; K64.1 Second degree hemorrhoids; D17.5 Benign lipomatous neoplasm of intra-abdominal organs; K29.50 Unspecified chronic gastritis without bleeding; R13.10 Dysphagia, unspecified; F32.A Depression, unspecified; E66.01 Morbid (severe) obesity due to excess calories; Z68.44 Body mass index [BMI] 60.0-69.9, adult; E07.9 Disorder of thyroid, unspecified; I12.9 Hypertensive chronic kidney disease with stage 1 through stage 4 chronic kidney disease, or unspecified chronic kidney disease; E11.22 Type 2 diabetes mellitus with diabetic chronic kidney disease; N18.9 Chronic kidney disease, unspecified; J30.2 Other seasonal allergic rhinitis; Z88.8 Allergy status to other drugs, medicaments and biological substances; Z88.1 Allergy status to other antibiotic agents
CPT/HCPCS: 43239; 45385; 88305; J2370; J3010

== ENCOUNTER → 2024-02-12 | Outpatient (REF) | payer BC ==
[~2024-02-12] MED LIST changes: +ARTIDRO4 OU; -LOSA100T45 PO; +LOSA100T46 PO; -NS 1,000 ML IV ONE; -POLYOPD OU
[2024-02-12 15:51] LABS: BASO % 0.3 % (0.0-1.0); EOS # 0.1 10^3/uL (0.0-0.5); EOS % 1.7 % (0.0-3.0); HEMATOCRIT 39.8 % (36.0-47.0); HEMOGLOBIN 12.4 g/dl (12.0-15.5); LYMPH # 1.9 10^3/uL (1.5-5.0); LYMPH % 25.3 % (24.0-44.0); MEAN CORPUSCULAR HEMOGLOBIN 29.2 pg (27.0-33.0); MEAN CORPUSCULAR HGB CONC 31.2 g/dl (32.0-36.5); MEAN CORPUSCULAR VOLUME 93.9 fl (80.0-96.0); MONO # 0.4 10^3/uL (0.0-0.8); MONO % 5.1 % (2.0-8.0); NEUTROPHILS % 66.9 % (36.0-66.0); PLATELET COUNT, AUTOMATED 183 10^3/uL (150-450); RED BLOOD COUNT 4.24 10^6/uL (4.00-5.40); WHITE BLOOD COUNT 7.5 10^3/uL (4.0-10.0)
[2024-02-12 16:11] LABS: BLOOD UREA NITROGEN 20 MG/DL (9-23); CALCIUM LEVEL 8.9 MG/DL (8.3-10.6); CARBON DIOXIDE LEVEL 31 MMOL/L (20-31); CHLORIDE LEVEL 104 MMOL/L (98-107); CREATININE FOR GFR 0.85 MG/DL (0.55-1.30); GLOMERULAR FILTRATION RATE > 60.0 (>45); GLUCOSE, FASTING 140 MG/DL (74-106); POTASSIUM SERUM 4.7 MMOL/L (3.5-5.1); SODIUM LEVEL 141 MMOL/L (136-145)
[2024-02-12 16:16] LABS: FOLATE 12.8 NG/ML (>5.4)
[2024-02-12 16:23] LABS: VITAMIN B12 LEVEL 286 PG/ML (211-911)
[2024-02-12 19:15] LABS: HEMOGLOBIN A1c 6.3 % (4.0-6.0)
== END ==
LOC: M SFHCADAM 13:58
PROVIDERS: ATTEND Physician Assistant
DX: G62.9 Polyneuropathy, unspecified (principal); E11.9 Type 2 diabetes mellitus without complications

== ENCOUNTER → 2024-02-19 | Outpatient (REF) | payer BC | LOC: M SFHCADAM 17:15 | PROVIDERS: ATTEND Family Medicine | DX: E03.9 Hypothyroidism, unspecified (principal); E11.9 Type 2 diabetes mellitus without complications ==

== ENCOUNTER → 2024-06-02 | Outpatient (REF) | payer BC ==
[2024-06-02 18:29] LABS: ALBUMIN 3.6 G/DL (3.2-5.2); ALKALINE PHOSPHATASE 65 U/L (46-116); ALT/SGPT 12 U/L (7.0-40); AST/SGOT 11 U/L (<34); BILIRUBIN,TOTAL 0.6 MG/DL (0.3-1.2); BLOOD UREA NITROGEN 19 MG/DL (9-23); CALCIUM LEVEL 9.4 MG/DL (8.3-10.6); CARBON DIOXIDE LEVEL 31 MMOL/L (20-31); CHLORIDE LEVEL 105 MMOL/L (98-107); CHOLESTEROL LEVEL 141 MG/DL (<200); CHOLESTEROL RISK RATIO 4.77 (<5); CREATININE FOR GFR 0.87 MG/DL (0.55-1.30); GLOMERULAR FILTRATION RATE > 60.0 (>45); GLUCOSE, FASTING 144 MG/DL (74-106); HDL CHOLESTEROL 29.5 MG/DL (>40); LDL CHOLESTEROL 73.7 MG/DL (<100); NON-HDL-C 111.5 MG/DL; POTASSIUM SERUM 4.6 MMOL/L (3.5-5.1); SODIUM LEVEL 142 MMOL/L (136-145); TOTAL PROTEIN 6.1 G/DL (5.7-8.2); TRIGLYCERIDES LEVEL 189 MG/DL (<150)
[2024-06-02 18:51] LABS: HEMOGLOBIN A1c 7.1 % (4.0-6.0)
== END ==
LOC: M SFHCADAM 11:16
PROVIDERS: ATTEND Family Medicine
DX: E11.69 Type 2 diabetes mellitus with other specified complication (principal); E63.9 Nutritional deficiency, unspecified

== ENCOUNTER → 2024-10-19 | Outpatient (REF) | payer BC ==
[2024-10-19 19:56] LABS: HEMOGLOBIN A1c 6.2 % (4.0-6.0)
[2024-10-19 20:02] LABS: ALBUMIN 3.5 G/DL (3.2-5.2); BILIRUBIN,TOTAL 0.4 MG/DL (0.3-1.2); CALCIUM LEVEL 9.3 MG/DL (8.3-10.6); CREATININE FOR GFR 1.04 MG/DL (0.55-1.30); POTASSIUM SERUM 4.1 MMOL/L (3.5-5.1); TOTAL PROTEIN 6.4 G/DL (5.7-8.2)
== END ==
LOC: M SFHCADAM 13:00
PROVIDERS: ATTEND Family Medicine
DX: E11.9 Type 2 diabetes mellitus without complications (principal); G44.52 New daily persistent headache (NDPH)

== ENCOUNTER → 2024-10-21 | Outpatient (CLI) | payer BC ==
[~2024-10-21] MED LIST changes: +ISOVUE-370 76% 100ML VIAL ONE
== END ==
LOC: M PLAIMG 08:58
PROVIDERS: ATTEND Family Medicine
DX: G44.52 New daily persistent headache (NDPH) (principal)

== ENCOUNTER → 2025-07-02 | Outpatient (CLI) | payer BC ==
[~2025-07-02] MED LIST changes: -ISOVUE-370 76% 100ML VIAL ONE; +PREG-35 PO; -PREG100CA PO
== END ==
LOC: M SOG 09:29
PROVIDERS: ATTEND Neuromusculoskeletal Medicine, Sports Medicine
DX: M25.562 Pain in left knee (principal); M17.12 Unilateral primary osteoarthritis, left knee

== ENCOUNTER → 2025-09-07 | Outpatient (REF) | payer BC ==
[2025-09-07 17:42] LABS: BASO # 0.0 10^3/uL (0.0-0.2); BASO % 0.4 % (0.0-1.0); EOS # 0.2 10^3/uL (0.0-0.5); EOS % 2.7 % (0.0-3.0); LYMPH # 3.3 10^3/uL (1.5-5.0); LYMPH % 39.8 % (24.0-44.0); MONO # 0.4 10^3/uL (0.0-0.8); MONO % 5.1 % (2.0-8.0); NEUTROPHILS # 4.3 10^3/uL (1.5-8.5); NEUTROPHILS % 51.8 % (36.0-66.0); PLATELET COUNT, AUTOMATED 182 10^3/uL (150-450)
[2025-09-07 18:02] LABS: ALT/SGPT 15.0 U/L (7.0-40); AST/SGOT 16.0 U/L (<34); CALCIUM LEVEL 9.2 MG/DL (8.3-10.6); CARBON DIOXIDE LEVEL 28.0 MMOL/L (20-31); CHLORIDE LEVEL 100.0 MMOL/L (98-107); CHOLESTEROL LEVEL 162.0 MG/DL (<200); CHOLESTEROL RISK RATIO 4.51 (<5); CREATININE FOR GFR 0.99 MG/DL (0.55-1.30); FREE T4 1.26 NG/DL (0.89-1.76); GLOMERULAR FILTRATION RATE 63.7 (>45); LDL CHOLESTEROL 87.1 MG/DL (<100); NON-HDL-C 126.1 MG/DL; POTASSIUM SERUM 5.0 MMOL/L (3.5-5.1); SODIUM LEVEL 140.0 MMOL/L (136-145); TRIGLYCERIDES LEVEL 195.0 MG/DL (<150)
[2025-09-07 18:43] LABS: ESTIMATED AVERAGE GLUCOSE 140.0 MG/DL (60-110)
== END ==
LOC: M SFHCADAM 13:51
PROVIDERS: ATTEND Family Medicine
DX: Z00.00 Encounter for general adult medical examination without abnormal findings (principal); E03.9 Hypothyroidism, unspecified; E11.9 Type 2 diabetes mellitus without complications